=== PATIENT | male | born 1960 | race African-American/Black ===

== ENCOUNTER 2016-02-19 12:07 | Inpatient (IN) | payer OTHER ==
[2016-02-19 12:49] VITALS: BMI 26.6
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
[2016-02-19] MEDS ORDERED: hydrOXYzine PAMOATE 50 MG CAPSULE (FP) PO PRN (13:35)
[2016-02-19] MEDS ORDERED: MENTHOL/PHENOL 1 EACH UD MM PRN (13:35)
[2016-02-19] MEDS ORDERED: guaiFENesin/D-METHORPHAN HB 10 ML UNIT-DOSE CUPS PO PRN (13:35)
[2016-02-19] MEDS ORDERED: LOPERAMIDE HCL 2 MG CAPSULE PO PRN (13:35)
[2016-02-19] MEDS ORDERED: P-EPHED 60MG/TRIPROLIDI 2.5MG TABLET PO PRN (13:35)
[2016-02-19] MEDS ORDERED: MAG HYDROX/AL HYDROX/SIMETH 30 ML UNIT-DOSE CUP PO PRN (13:35)
[2016-02-19] MEDS ORDERED: IBUPROFEN 400 MG TABLET (FP) PO PRN (13:35)
[2016-02-19] MEDS ORDERED: MAGNESIUM CITRATE 300 ML BOTTLE PO PRN (13:35)
[2016-02-19] MEDS ORDERED: MAGNESIUM HYDROX 2400MG/30ML ORAL SUSPENSION 30 ML CUP PO PRN (13:35)
[2016-02-19] MEDS ORDERED: ALBUTEROL SO4 6.7 GM HFA INHALER IH PRN (13:37)
[2016-02-19] MEDS: ACETAMINOPHEN 325 MG TABLET (FP) PO PRN (19:06)
[2016-02-19] MEDS: NICOTINE 21 MG/24 HOURS TOPICAL PATCH TD SCH (20:02)
[2016-02-19 20:07] LABS: MCH 27.8 pg (25.7-33.7); MCHC 31.4 g/dl (32.0-35.9); MEAN CELL VOLUME 88.6 fl (80-96); MEAN PLT VOLUME 7.6 fl (7.5-11.1); PLATELET COUNT 346 K/MM3 (134-434); RDW 15.5 % (11.9-15.9); WHITE BLOOD COUNT 5.6 K/mm3 (4.0-10.0)
[2016-02-19 20:23] LABS: URINE APPEARANCE SLCLOUDY; URINE BILIRUBIN NEGATIVE (NEGATIVE); URINE BLOOD NEGATIVE (NEGATIVE); URINE COLOR YELLOW; URINE GLUCOSE (UA) NEGATIVE (NEGATIVE); URINE KETONE NEGATIVE (NEGATIVE); URINE LEUK ESTERASE NEGATIVE (NEGATIVE); URINE NITRITE NEGATIVE (NEGATIVE); URINE PROTEIN NEGATIVE (NEGATIVE); URINE UROBILINOGEN NEGATIVE E.U./dl (0.2-1.0)
[2016-02-19 20:30] LABS: ALBUMIN 4.3 g/dl (3.4-5.0); ANION GAP 9 (8-16); CALCIUM 9.4 mg/dL (8.5-10.1); CO2 27 mmol/L (21-32); GLUCOSE,RANDOM 109 mg/dL (74-106)
[2016-02-19 20:35] LABS: ALK PHOS 85 U/L (45-117); BILIRUBIN,TOTAL 0.5 mg/dL (0.2-1.0); SGOT/AST 14 U/L (15-37); SGPT/ALT 41 U/L (12-78)
[2016-02-19] MEDS: LATANOPROST 0.005% OPHTH SOLN 2.5ML BOTTLE OU SCH (21:50)
[2016-02-19] MEDS: THIAMINE HCL 100 MG TABLET (FP) PO SCH (21:51)
[2016-02-19] MEDS: diphenhydrAMINE HCL 50 MG CAPSULE PO PRN ×2 (21:51→23:29)
[2016-02-19] MEDS: NAPROXEN 500 MG TABLET (FP) PO SCH (21:51)
[2016-02-19] MEDS: BUDESONIDE/FORMETEROL FUMARATE 80/4.5 mcg INHALER IH SCH (21:52)
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
[2016-02-20] MEDS: NICOTINE 21 MG/24 HOURS TOPICAL PATCH TD SCH (10:39)
[2016-02-20] MEDS: NAPROXEN 500 MG TABLET (FP) PO SCH ×2 (10:39→21:46)
[2016-02-20] MEDS: PRENATAL VITAMINS W/ FOLIC ACID TABLET (FP) PO SCH (10:40)
[2016-02-20] MEDS: BUDESONIDE/FORMETEROL FUMARATE 80/4.5 mcg INHALER IH SCH ×2 (10:40→21:46)
[2016-02-20] MEDS ORDERED: BISMUTH SUBSALICYLATE 262 MG/15 ML BTL PO PRN (13:41)
[2016-02-20] MEDS: QUEtiapine FUMARATE 100 MG TABLET (FP) PO SCH (21:45)
[2016-02-20] MEDS: LATANOPROST 0.005% OPHTH SOLN 2.5ML BOTTLE OU SCH (21:46)
[2016-02-20] MEDS: THIAMINE HCL 100 MG TABLET (FP) PO SCH (21:46)
[2016-02-20] MEDS ORDERED: QUEtiapine FUMARATE 100 MG TABLET (FP) PO SCH (22:00)
[2016-02-21] MEDS: PRENATAL VITAMINS W/ FOLIC ACID TABLET (FP) PO SCH (10:26)
[2016-02-21] MEDS: BUDESONIDE/FORMETEROL FUMARATE 80/4.5 mcg INHALER IH SCH ×2 (10:26→22:09)
[2016-02-21] MEDS: NAPROXEN 500 MG TABLET (FP) PO SCH ×2 (10:26→22:08)
[2016-02-21] MEDS: NICOTINE 21 MG/24 HOURS TOPICAL PATCH TD SCH (10:26)
[2016-02-21] MEDS: SERTRALINE HCL 50 MG TABLET (FP) PO SCH (10:27)
[2016-02-21] MEDS: QUEtiapine FUMARATE 100 MG TABLET (FP) PO SCH (22:08)
[2016-02-21] MEDS: THIAMINE HCL 100 MG TABLET (FP) PO SCH (22:08)
[2016-02-21] MEDS: LATANOPROST 0.005% OPHTH SOLN 2.5ML BOTTLE OU SCH (22:09)
[2016-02-22] MEDS: NAPROXEN 500 MG TABLET (FP) PO SCH ×2 (10:33→21:27)
[2016-02-22] MEDS: SERTRALINE HCL 50 MG TABLET (FP) PO SCH (10:33)
[2016-02-22] MEDS: NICOTINE 21 MG/24 HOURS TOPICAL PATCH TD SCH (10:33)
[2016-02-22] MEDS: PRENATAL VITAMINS W/ FOLIC ACID TABLET (FP) PO SCH (10:33)
[2016-02-22] MEDS: BUDESONIDE/FORMETEROL FUMARATE 80/4.5 mcg INHALER IH SCH ×2 (10:33→21:28)
[2016-02-22] MEDS: THIAMINE HCL 100 MG TABLET (FP) PO SCH (21:27)
[2016-02-22] MEDS: QUEtiapine FUMARATE 100 MG TABLET (FP) PO SCH (21:27)
[2016-02-22] MEDS: LATANOPROST 0.005% OPHTH SOLN 2.5ML BOTTLE OU SCH (21:28)
[2016-02-23] MEDS: NICOTINE 21 MG/24 HOURS TOPICAL PATCH TD SCH (10:28)
[2016-02-23] MEDS: NAPROXEN 500 MG TABLET (FP) PO SCH ×2 (10:28→22:06)
[2016-02-23] MEDS: PRENATAL VITAMINS W/ FOLIC ACID TABLET (FP) PO SCH (10:29)
[2016-02-23] MEDS: BUDESONIDE/FORMETEROL FUMARATE 80/4.5 mcg INHALER IH SCH ×2 (10:29→22:06)
[2016-02-23] MEDS: SERTRALINE HCL 50 MG TABLET (FP) PO SCH (10:33)
[2016-02-23] MEDS: LATANOPROST 0.005% OPHTH SOLN 2.5ML BOTTLE OU SCH (22:06)
[2016-02-23] MEDS: QUEtiapine FUMARATE 100 MG TABLET (FP) PO SCH (22:06)
[2016-02-23] MEDS: THIAMINE HCL 100 MG TABLET (FP) PO SCH (22:06)
[2016-02-24] MEDS: NICOTINE 21 MG/24 HOURS TOPICAL PATCH TD SCH (10:22)
[2016-02-24] MEDS: PRENATAL VITAMINS W/ FOLIC ACID TABLET (FP) PO SCH (10:22)
[2016-02-24] MEDS: NAPROXEN 500 MG TABLET (FP) PO SCH ×2 (10:22→21:06)
[2016-02-24] MEDS: BUDESONIDE/FORMETEROL FUMARATE 80/4.5 mcg INHALER IH SCH ×2 (10:23→21:07)
[2016-02-24] MEDS: SERTRALINE HCL 50 MG TABLET (FP) PO SCH (10:23)
[2016-02-24] MEDS: QUEtiapine FUMARATE 100 MG TABLET (FP) PO SCH (21:06)
[2016-02-24] MEDS: THIAMINE HCL 100 MG TABLET (FP) PO SCH (21:06)
[2016-02-24] MEDS: LATANOPROST 0.005% OPHTH SOLN 2.5ML BOTTLE OU SCH (21:06)
[2016-02-25] MEDS: NICOTINE 21 MG/24 HOURS TOPICAL PATCH TD SCH (10:39)
[2016-02-25] MEDS: BUDESONIDE/FORMETEROL FUMARATE 80/4.5 mcg INHALER IH SCH ×2 (10:39→21:04)
[2016-02-25] MEDS: SERTRALINE HCL 50 MG TABLET (FP) PO SCH (10:39)
[2016-02-25] MEDS: NAPROXEN 500 MG TABLET (FP) PO SCH ×2 (10:39→21:04)
[2016-02-25] MEDS: PRENATAL VITAMINS W/ FOLIC ACID TABLET (FP) PO SCH (10:39)
[2016-02-25] MEDS: LATANOPROST 0.005% OPHTH SOLN 2.5ML BOTTLE OU SCH (21:03)
[2016-02-25] MEDS: THIAMINE HCL 100 MG TABLET (FP) PO SCH (21:04)
[2016-02-25] MEDS: QUEtiapine FUMARATE 100 MG TABLET (FP) PO SCH (21:04)
[2016-02-26] MEDS: BUDESONIDE/FORMETEROL FUMARATE 80/4.5 mcg INHALER IH SCH ×2 (10:17→21:07)
[2016-02-26] MEDS: NICOTINE 21 MG/24 HOURS TOPICAL PATCH TD SCH (10:17)
[2016-02-26] MEDS: PRENATAL VITAMINS W/ FOLIC ACID TABLET (FP) PO SCH (10:17)
[2016-02-26] MEDS: SERTRALINE HCL 50 MG TABLET (FP) PO SCH (10:17)
[2016-02-26] MEDS: NAPROXEN 500 MG TABLET (FP) PO SCH ×2 (10:17→21:07)
[2016-02-26 10:18] LABS: BASOPHIL 1.1 % (0-2.0); EOSINOPHIL 2.9 % (0-4.5); MCH 28.4 pg (25.7-33.7); MCHC 32.1 g/dl (32.0-35.9); MEAN CELL VOLUME 88.3 fl (80-96); MEAN PLT VOLUME 7.2 fl (7.5-11.1); NEUTROPHILS 30.5 % (42.8-82.8); PLATELET COUNT 289 K/MM3 (134-434); RDW 15.2 % (11.9-15.9); WHITE BLOOD COUNT 5.2 K/mm3 (4.0-10.0)
[2016-02-26] MEDS: THIAMINE HCL 100 MG TABLET (FP) PO SCH (21:06)
[2016-02-26] MEDS: QUEtiapine FUMARATE 100 MG TABLET (FP) PO SCH (21:06)
[2016-02-27] MEDS: BUDESONIDE/FORMETEROL FUMARATE 80/4.5 mcg INHALER IH SCH ×2 (10:04→21:05)
[2016-02-27] MEDS: SERTRALINE HCL 50 MG TABLET (FP) PO SCH (10:04)
[2016-02-27] MEDS: NICOTINE 21 MG/24 HOURS TOPICAL PATCH TD SCH (10:04)
[2016-02-27] MEDS: PRENATAL VITAMINS W/ FOLIC ACID TABLET (FP) PO SCH (10:04)
[2016-02-27] MEDS: NAPROXEN 500 MG TABLET (FP) PO SCH ×2 (10:04→21:05)
[2016-02-27] MEDS: ACETAMINOPHEN 325 MG TABLET (FP) PO PRN (11:53)
[2016-02-27] MEDS: LATANOPROST 0.005% OPHTH SOLN 2.5ML BOTTLE OU SCH ×2 (17:29→21:05)
[2016-02-27] MEDS: THIAMINE HCL 100 MG TABLET (FP) PO SCH (21:04)
[2016-02-27] MEDS: QUEtiapine FUMARATE 100 MG TABLET (FP) PO SCH (21:05)
[2016-02-28] MEDS: SERTRALINE HCL 50 MG TABLET (FP) PO SCH (10:20)
[2016-02-28] MEDS: PRENATAL VITAMINS W/ FOLIC ACID TABLET (FP) PO SCH (10:20)
[2016-02-28] MEDS: NAPROXEN 500 MG TABLET (FP) PO SCH ×2 (10:20→21:11)
[2016-02-28] MEDS: BUDESONIDE/FORMETEROL FUMARATE 80/4.5 mcg INHALER IH SCH ×2 (10:21→21:45)
[2016-02-28] MEDS: NICOTINE 21 MG/24 HOURS TOPICAL PATCH TD SCH (10:21)
[2016-02-28] MEDS: LATANOPROST 0.005% OPHTH SOLN 2.5ML BOTTLE OU SCH (21:11)
[2016-02-28] MEDS: QUEtiapine FUMARATE 100 MG TABLET (FP) PO SCH (21:11)
[2016-02-28] MEDS: THIAMINE HCL 100 MG TABLET (FP) PO SCH (21:45)
[2016-02-29] MEDS: PRENATAL VITAMINS W/ FOLIC ACID TABLET (FP) PO SCH (10:30)
[2016-02-29] MEDS: NAPROXEN 500 MG TABLET (FP) PO SCH ×2 (10:31→21:40)
[2016-02-29] MEDS: BUDESONIDE/FORMETEROL FUMARATE 80/4.5 mcg INHALER IH SCH ×2 (10:31→21:39)
[2016-02-29] MEDS: SERTRALINE HCL 50 MG TABLET (FP) PO SCH (10:31)
[2016-02-29] MEDS: NICOTINE 21 MG/24 HOURS TOPICAL PATCH TD SCH (10:32)
[2016-02-29] MEDS: QUEtiapine FUMARATE 100 MG TABLET (FP) PO SCH (21:40)
[2016-02-29] MEDS: THIAMINE HCL 100 MG TABLET (FP) PO SCH (21:40)
[2016-02-29] MEDS: LATANOPROST 0.005% OPHTH SOLN 2.5ML BOTTLE OU SCH (21:41)
[2016-03-01] MEDS: BUDESONIDE/FORMETEROL FUMARATE 80/4.5 mcg INHALER IH SCH ×2 (10:21→22:42)
[2016-03-01] MEDS: NAPROXEN 500 MG TABLET (FP) PO SCH ×2 (10:21→21:43)
[2016-03-01] MEDS: SERTRALINE HCL 50 MG TABLET (FP) PO SCH (10:21)
[2016-03-01] MEDS: PRENATAL VITAMINS W/ FOLIC ACID TABLET (FP) PO SCH (10:21)
[2016-03-01] MEDS: NICOTINE 21 MG/24 HOURS TOPICAL PATCH TD SCH (10:21)
[2016-03-01] MEDS: LATANOPROST 0.005% OPHTH SOLN 2.5ML BOTTLE OU SCH (21:42)
[2016-03-01] MEDS: THIAMINE HCL 100 MG TABLET (FP) PO SCH (21:43)
[2016-03-01] MEDS: QUEtiapine FUMARATE 100 MG TABLET (FP) PO SCH (21:43)
[2016-03-02] MEDS: SERTRALINE HCL 50 MG TABLET (FP) PO SCH (10:01)
[2016-03-02] MEDS: NICOTINE 21 MG/24 HOURS TOPICAL PATCH TD SCH (10:01)
[2016-03-02] MEDS: NAPROXEN 500 MG TABLET (FP) PO SCH ×2 (10:01→21:19)
[2016-03-02] MEDS: BUDESONIDE/FORMETEROL FUMARATE 80/4.5 mcg INHALER IH SCH ×2 (10:01→21:19)
[2016-03-02] MEDS: PRENATAL VITAMINS W/ FOLIC ACID TABLET (FP) PO SCH (10:01)
[2016-03-02] MEDS: THIAMINE HCL 100 MG TABLET (FP) PO SCH (21:19)
[2016-03-02] MEDS: QUEtiapine FUMARATE 100 MG TABLET (FP) PO SCH (21:19)
[2016-03-02] MEDS: LATANOPROST 0.005% OPHTH SOLN 2.5ML BOTTLE OU SCH (21:48)
[2016-03-03] MEDS: SERTRALINE HCL 50 MG TABLET (FP) PO SCH (09:50)
[2016-03-03] MEDS: PRENATAL VITAMINS W/ FOLIC ACID TABLET (FP) PO SCH (09:50)
[2016-03-03] MEDS: BUDESONIDE/FORMETEROL FUMARATE 80/4.5 mcg INHALER IH SCH ×2 (09:51→23:13)
[2016-03-03] MEDS: NAPROXEN 500 MG TABLET (FP) PO SCH ×2 (09:51→21:20)
[2016-03-03] MEDS: NICOTINE 21 MG/24 HOURS TOPICAL PATCH TD SCH (09:51)
[2016-03-03] MEDS ORDERED: LIDOCAINE VISCOUS 2% ORAL/TOP 20 ML UNIT-DOSE CUP MM PRN (13:18)
--- NOTE | 2016-03-03 13:23 | PN ---
S Progress Note (SOAP) Subjective: swollen , painful gums Objective: 03/03/16 13:21 Vital Signs Temperature 97.5 F L 03/03/16 06:49 Pulse Rate 86 03/03/16 06:49 Respiratory Rate 16 03/03/16 06:49 Blood Pressure 106/68 03/03/16 06:49 O2 Sat by Pulse Oximetry (%) gum rt upper quad. redness, tenderness Assessment: 03/03/16 13:22 gingivitis Plan: amoxicillin 500mg tid viscous lidocaine fluids naproxsen 500mg bid
[2016-03-03] MEDS: AMOXICILLIN 500 MG CAPSULE (FP) PO SCH ×2 (14:01→21:20)
[2016-03-03] MEDS: QUEtiapine FUMARATE 100 MG TABLET (FP) PO SCH (21:20)
[2016-03-03] MEDS: THIAMINE HCL 100 MG TABLET (FP) PO SCH (21:20)
[2016-03-03] MEDS: LATANOPROST 0.005% OPHTH SOLN 2.5ML BOTTLE OU SCH (21:21)
[2016-03-04] MEDS: AMOXICILLIN 500 MG CAPSULE (FP) PO SCH ×3 (06:50→21:01)
[2016-03-04] MEDS: NAPROXEN 500 MG TABLET (FP) PO SCH ×2 (09:53→21:01)
[2016-03-04] MEDS: PRENATAL VITAMINS W/ FOLIC ACID TABLET (FP) PO SCH (09:53)
[2016-03-04] MEDS: SERTRALINE HCL 50 MG TABLET (FP) PO SCH (09:53)
[2016-03-04] MEDS: NICOTINE 21 MG/24 HOURS TOPICAL PATCH TD SCH (09:53)
[2016-03-04] MEDS: BUDESONIDE/FORMETEROL FUMARATE 80/4.5 mcg INHALER IH SCH ×2 (09:54→23:12)
[2016-03-04] MEDS: LATANOPROST 0.005% OPHTH SOLN 2.5ML BOTTLE OU SCH (21:00)
[2016-03-04] MEDS: QUEtiapine FUMARATE 100 MG TABLET (FP) PO SCH (21:01)
[2016-03-04] MEDS: THIAMINE HCL 100 MG TABLET (FP) PO SCH (21:01)
[2016-03-05] MEDS: AMOXICILLIN 500 MG CAPSULE (FP) PO SCH ×3 (06:23→21:07)
[2016-03-05] MEDS: NAPROXEN 500 MG TABLET (FP) PO SCH ×2 (10:16→21:07)
[2016-03-05] MEDS: SERTRALINE HCL 50 MG TABLET (FP) PO SCH (10:16)
[2016-03-05] MEDS: NICOTINE 21 MG/24 HOURS TOPICAL PATCH TD SCH (10:16)
[2016-03-05] MEDS: BUDESONIDE/FORMETEROL FUMARATE 80/4.5 mcg INHALER IH SCH ×2 (10:16→21:08)
[2016-03-05] MEDS: PRENATAL VITAMINS W/ FOLIC ACID TABLET (FP) PO SCH (10:16)
[2016-03-05] MEDS: LATANOPROST 0.005% OPHTH SOLN 2.5ML BOTTLE OU SCH (21:06)
[2016-03-05] MEDS: QUEtiapine FUMARATE 100 MG TABLET (FP) PO SCH (21:07)
[2016-03-05] MEDS: THIAMINE HCL 100 MG TABLET (FP) PO SCH (21:07)
[2016-03-06] MEDS: AMOXICILLIN 500 MG CAPSULE (FP) PO SCH ×3 (06:42→21:42)
[2016-03-06] MEDS: PRENATAL VITAMINS W/ FOLIC ACID TABLET (FP) PO SCH (10:27)
[2016-03-06] MEDS: SERTRALINE HCL 50 MG TABLET (FP) PO SCH (10:27)
[2016-03-06] MEDS: NAPROXEN 500 MG TABLET (FP) PO SCH ×2 (10:27→21:42)
[2016-03-06] MEDS: BUDESONIDE/FORMETEROL FUMARATE 80/4.5 mcg INHALER IH SCH ×2 (10:28→21:42)
[2016-03-06] MEDS: NICOTINE 21 MG/24 HOURS TOPICAL PATCH TD SCH (10:28)
[2016-03-06] MEDS: THIAMINE HCL 100 MG TABLET (FP) PO SCH (21:41)
[2016-03-06] MEDS: LATANOPROST 0.005% OPHTH SOLN 2.5ML BOTTLE OU SCH (21:42)
[2016-03-06] MEDS: QUEtiapine FUMARATE 100 MG TABLET (FP) PO SCH (21:42)
[2016-03-07] MEDS: AMOXICILLIN 500 MG CAPSULE (FP) PO SCH ×3 (06:28→21:11)
[2016-03-07] MEDS: NICOTINE 21 MG/24 HOURS TOPICAL PATCH TD SCH (10:44)
[2016-03-07] MEDS: SERTRALINE HCL 50 MG TABLET (FP) PO SCH (10:44)
[2016-03-07] MEDS: PRENATAL VITAMINS W/ FOLIC ACID TABLET (FP) PO SCH (10:44)
[2016-03-07] MEDS: BUDESONIDE/FORMETEROL FUMARATE 80/4.5 mcg INHALER IH SCH ×2 (10:44→21:12)
[2016-03-07] MEDS: NAPROXEN 500 MG TABLET (FP) PO SCH ×2 (10:44→21:11)
[2016-03-07] MEDS: THIAMINE HCL 100 MG TABLET (FP) PO SCH (21:11)
[2016-03-07] MEDS: QUEtiapine FUMARATE 100 MG TABLET (FP) PO SCH (21:11)
[2016-03-07] MEDS: LATANOPROST 0.005% OPHTH SOLN 2.5ML BOTTLE OU SCH (21:12)
[2016-03-08] MEDS: AMOXICILLIN 500 MG CAPSULE (FP) PO SCH ×3 (06:28→21:22)
[2016-03-08] MEDS: PRENATAL VITAMINS W/ FOLIC ACID TABLET (FP) PO SCH (10:27)
[2016-03-08] MEDS: NICOTINE 21 MG/24 HOURS TOPICAL PATCH TD SCH (10:27)
[2016-03-08] MEDS: NAPROXEN 500 MG TABLET (FP) PO SCH ×2 (10:27→21:22)
[2016-03-08] MEDS: BUDESONIDE/FORMETEROL FUMARATE 80/4.5 mcg INHALER IH SCH ×2 (10:27→21:22)
[2016-03-08] MEDS: SERTRALINE HCL 50 MG TABLET (FP) PO SCH (10:27)
[2016-03-08] MEDS: THIAMINE HCL 100 MG TABLET (FP) PO SCH (21:22)
[2016-03-08] MEDS: QUEtiapine FUMARATE 100 MG TABLET (FP) PO SCH (21:22)
[2016-03-08] MEDS: LATANOPROST 0.005% OPHTH SOLN 2.5ML BOTTLE OU SCH (21:24)
[2016-03-09] MEDS: AMOXICILLIN 500 MG CAPSULE (FP) PO SCH ×3 (06:49→21:39)
[2016-03-09] MEDS: NICOTINE 21 MG/24 HOURS TOPICAL PATCH TD SCH (10:11)
[2016-03-09] MEDS: BUDESONIDE/FORMETEROL FUMARATE 80/4.5 mcg INHALER IH SCH ×2 (10:11→23:01)
[2016-03-09] MEDS: SERTRALINE HCL 50 MG TABLET (FP) PO SCH (10:11)
[2016-03-09] MEDS: PRENATAL VITAMINS W/ FOLIC ACID TABLET (FP) PO SCH (10:11)
[2016-03-09] MEDS: NAPROXEN 500 MG TABLET (FP) PO SCH ×2 (10:11→21:39)
[2016-03-09] MEDS: QUEtiapine FUMARATE 100 MG TABLET (FP) PO SCH (21:38)
[2016-03-09] MEDS: LATANOPROST 0.005% OPHTH SOLN 2.5ML BOTTLE OU SCH (21:38)
[2016-03-09] MEDS: THIAMINE HCL 100 MG TABLET (FP) PO SCH (21:38)
[2016-03-10] MEDS: AMOXICILLIN 500 MG CAPSULE (FP) PO SCH ×2 (06:30→14:22)
[2016-03-10] MEDS: NAPROXEN 500 MG TABLET (FP) PO SCH ×2 (09:13→21:34)
[2016-03-10] MEDS: PRENATAL VITAMINS W/ FOLIC ACID TABLET (FP) PO SCH (09:13)
[2016-03-10] MEDS: NICOTINE 21 MG/24 HOURS TOPICAL PATCH TD SCH (09:14)
[2016-03-10] MEDS: SERTRALINE HCL 50 MG TABLET (FP) PO SCH (09:14)
[2016-03-10] MEDS: BUDESONIDE/FORMETEROL FUMARATE 80/4.5 mcg INHALER IH SCH ×2 (09:14→21:35)
[2016-03-10] MEDS: QUEtiapine FUMARATE 100 MG TABLET (FP) PO SCH (21:34)
[2016-03-10] MEDS: THIAMINE HCL 100 MG TABLET (FP) PO SCH (21:34)
[2016-03-10] MEDS: LATANOPROST 0.005% OPHTH SOLN 2.5ML BOTTLE OU SCH (21:34)
[2016-03-11] MEDS: PRENATAL VITAMINS W/ FOLIC ACID TABLET (FP) PO SCH (10:33)
[2016-03-11] MEDS: SERTRALINE HCL 50 MG TABLET (FP) PO SCH (10:33)
[2016-03-11] MEDS: NAPROXEN 500 MG TABLET (FP) PO SCH ×2 (10:33→21:46)
[2016-03-11] MEDS: BUDESONIDE/FORMETEROL FUMARATE 80/4.5 mcg INHALER IH SCH ×2 (10:34→21:46)
[2016-03-11] MEDS: NICOTINE 21 MG/24 HOURS TOPICAL PATCH TD SCH (10:34)
[2016-03-11] MEDS: LATANOPROST 0.005% OPHTH SOLN 2.5ML BOTTLE OU SCH (21:46)
[2016-03-11] MEDS: THIAMINE HCL 100 MG TABLET (FP) PO SCH (21:46)
[2016-03-11] MEDS: QUEtiapine FUMARATE 100 MG TABLET (FP) PO SCH (21:46)
[2016-03-12] MEDS: NAPROXEN 500 MG TABLET (FP) PO SCH ×2 (10:18→21:42)
[2016-03-12] MEDS: PRENATAL VITAMINS W/ FOLIC ACID TABLET (FP) PO SCH (10:18)
[2016-03-12] MEDS: NICOTINE 21 MG/24 HOURS TOPICAL PATCH TD SCH (10:19)
[2016-03-12] MEDS: BUDESONIDE/FORMETEROL FUMARATE 80/4.5 mcg INHALER IH SCH ×2 (10:19→21:43)
[2016-03-12] MEDS: SERTRALINE HCL 50 MG TABLET (FP) PO SCH (10:27)
[2016-03-12] MEDS: LATANOPROST 0.005% OPHTH SOLN 2.5ML BOTTLE OU SCH (21:42)
[2016-03-12] MEDS: THIAMINE HCL 100 MG TABLET (FP) PO SCH (21:42)
[2016-03-12] MEDS: QUEtiapine FUMARATE 100 MG TABLET (FP) PO SCH (21:42)
[2016-03-13] MEDS: NICOTINE 21 MG/24 HOURS TOPICAL PATCH TD SCH (10:40)
[2016-03-13] MEDS: BUDESONIDE/FORMETEROL FUMARATE 80/4.5 mcg INHALER IH SCH ×2 (10:40→21:44)
[2016-03-13] MEDS: NAPROXEN 500 MG TABLET (FP) PO SCH ×2 (10:40→21:44)
[2016-03-13] MEDS: PRENATAL VITAMINS W/ FOLIC ACID TABLET (FP) PO SCH (10:40)
[2016-03-13] MEDS: SERTRALINE HCL 50 MG TABLET (FP) PO SCH (10:40)
[2016-03-13] MEDS: QUEtiapine FUMARATE 100 MG TABLET (FP) PO SCH (21:44)
[2016-03-13] MEDS: LATANOPROST 0.005% OPHTH SOLN 2.5ML BOTTLE OU SCH (21:44)
[2016-03-13] MEDS: THIAMINE HCL 100 MG TABLET (FP) PO SCH (21:44)
[2016-03-14] MEDS: PRENATAL VITAMINS W/ FOLIC ACID TABLET (FP) PO SCH (10:44)
[2016-03-14] MEDS: SERTRALINE HCL 50 MG TABLET (FP) PO SCH (10:44)
[2016-03-14] MEDS: NAPROXEN 500 MG TABLET (FP) PO SCH ×2 (10:44→21:42)
[2016-03-14] MEDS: BUDESONIDE/FORMETEROL FUMARATE 80/4.5 mcg INHALER IH SCH ×2 (10:45→21:42)
[2016-03-14] MEDS: NICOTINE 21 MG/24 HOURS TOPICAL PATCH TD SCH (10:45)
[2016-03-14] MEDS: THIAMINE HCL 100 MG TABLET (FP) PO SCH (21:41)
[2016-03-14] MEDS: QUEtiapine FUMARATE 100 MG TABLET (FP) PO SCH (21:41)
[2016-03-14] MEDS: LATANOPROST 0.005% OPHTH SOLN 2.5ML BOTTLE OU SCH (21:42)
[2016-03-15] MEDS: NAPROXEN 500 MG TABLET (FP) PO SCH ×2 (10:34→21:41)
[2016-03-15] MEDS: BUDESONIDE/FORMETEROL FUMARATE 80/4.5 mcg INHALER IH SCH ×2 (10:34→21:41)
[2016-03-15] MEDS: NICOTINE 21 MG/24 HOURS TOPICAL PATCH TD SCH (10:34)
[2016-03-15] MEDS: SERTRALINE HCL 50 MG TABLET (FP) PO SCH (10:34)
[2016-03-15] MEDS: PRENATAL VITAMINS W/ FOLIC ACID TABLET (FP) PO SCH (10:34)
[2016-03-15] MEDS: LATANOPROST 0.005% OPHTH SOLN 2.5ML BOTTLE OU SCH (21:40)
[2016-03-15] MEDS: THIAMINE HCL 100 MG TABLET (FP) PO SCH (21:41)
[2016-03-15] MEDS: QUEtiapine FUMARATE 100 MG TABLET (FP) PO SCH (21:41)
[2016-03-16] MEDS: PRENATAL VITAMINS W/ FOLIC ACID TABLET (FP) PO SCH (10:33)
[2016-03-16] MEDS: SERTRALINE HCL 50 MG TABLET (FP) PO SCH (10:33)
[2016-03-16] MEDS: NAPROXEN 500 MG TABLET (FP) PO SCH ×2 (10:33→21:26)
[2016-03-16] MEDS: NICOTINE 21 MG/24 HOURS TOPICAL PATCH TD SCH (10:34)
[2016-03-16] MEDS: BUDESONIDE/FORMETEROL FUMARATE 80/4.5 mcg INHALER IH SCH ×2 (10:34→21:26)
[2016-03-16] MEDS: QUEtiapine FUMARATE 100 MG TABLET (FP) PO SCH (21:26)
[2016-03-16] MEDS: THIAMINE HCL 100 MG TABLET (FP) PO SCH (21:26)
[2016-03-16] MEDS: LATANOPROST 0.005% OPHTH SOLN 2.5ML BOTTLE OU SCH (21:27)
--- NOTE | 2016-03-17 07:59 | PN ---
Psychiatric Progress Note Vital Signs: Vital Signs Period Temp Pulse Resp BP Sys/Hernandez Pulse Ox Last 24 Hr 98 F 66 18-18 129/80 Date of Session: 03/17/16 Chief Complaint:: Psychiatrist Discharge Note HPI: Patient addressing Alcohol and Opoid Dependence comorbid with Nicotine Dependence and Bipolar Disorder ROS: Asthma, Glaucoma, Hepatitis C were medically managed Current Medications: Active Medications Generic Name Dose Route Start Last Admin Trade Name Freq PRN Reason Stop Dose Admin Acetaminophen 650 mg 02/19/16 13:35 02/27/16 11:53 Tylenol - PO 650 mg Q4H PRN Administration PAIN Al Hydroxide/Mg Hydroxide 30 ml 02/19/16 13:35 Mylanta Oral Suspension - PO Q6H PRN DYSPEPSIA Albuterol Sulfate 2 puff 02/19/16 13:37 Ventolin Hfa Inhaler - IH Q4H PRN ASTHMA Bismuth Subsalicylate 30 ml 02/20/16 13:41 Pepto-Bismol Liquid - PO BID PRN DIARRHEA Budesonide/Formoterol Fumarate 2 puff 02/19/16 22:00 03/16/16 21:26 Symbicort 80/4.5mcg - IH 2 puff BID APOLINAR Administration Diphenhydramine HCl 50 mg 02/19/16 13:35 02/19/16 23:29 Benadryl - PO 50 mg HSMR1 PRN Administration INSOMNIA Eucalyptus/Menthol/Phenol/Sorbitol 1 each 02/19/16 13:35 Cepastat Lozenge - MM Q4H PRN SORE THROAT Guaifenesin 10 ml 02/19/16 13:35 Robitussin Dm - PO Q6H PRN COUGH Hydroxyzine Pamoate 50 mg 02/19/16 13:35 Vistaril - PO Q4H PRN AGITATION Latanoprost 1 drop 02/19/16 22:00 03/16/16 21:27 Xalatan 0.005% Eye Drops - OU 1 drop HS APOLINAR Administration Lidocaine HCl 20 ml 03/03/16 13:18 Xylocaine 2% Viscous Oral - MM Q6HPO PRN ORAL PAIN/MOUTH SORES Loperamide HCl 4 mg 02/19/16 13:35 Imodium - PO Q6H PRN DIARRHEA Magnesium Citrate 300 ml 02/19/16 13:35 Citroma - PO Q48H PRN CONSTIPATION Magnesium Hydroxide 30 ml 02/19/16 13:35 Milk Of Magnesia - PO DAILY PRN CONSTIPATION Naproxen 500 mg 02/19/16 22:00 03/16/16 21:26 Naprosyn - PO 500 mg BID APOLINAR Administration Nicotine 21 mg 02/19/16 14:36 03/16/16 10:34 Nicoderm Patch - TD Not Given DAILY APOLINAR Multivit/Folic Acid/Iron 1 tab 02/20/16 10:00 03/16/16 10:33 Vitamins (Sjr) - PO 1 tab DAILY APOLINAR Administration Pseudoephedrine/Triprolidine 1 combo 02/19/16 13:35 Actifed - PO TID PRN NASAL CONGESTION Quetiapine Fumarate 100 mg 02/20/16 22:00 03/16/16 21:26 Seroquel - PO 100 mg HS APOLINAR Administration Sertraline HCl 50 mg 02/21/16 10:00 03/16/16 10:33 Zoloft - PO 50 mg DAILY APOLINAR Administration Thiamine HCl 100 mg 02/19/16 22:00 03/16/16 21:26 Vitamin B1 - PO 100 mg HS APOLINAR Administration Current Side Effect: No Lab tests ordered: Yes Lab tests reviewed: Yes Provider note:: Patient will complete this program on 03/18/16. He has met his treatment goals and will continue to address his issues in outpatient treatment at [facility] at [address] [place] [address].Told sports writer that from his participation in this program, he has learned about his triggers and the need to establish a network in order to maintain abstinence.He responded well to Seroquel 100 mg po HS. Script for 30 days supply of that medication will be electronically transmitted to [facility] at [address] [place] [address]. He is stable for discharge on 03/18/16 Total face to face time:: 35 Psychiatric Treatment Plan - Problem List (1) Alcohol dependence with uncomplicated withdrawal Current Visit: No (2) Opioid dependence with withdrawal Current Visit: No (3) Nicotine dependence Current Visit: No Qualifiers: Nicotine product type: cigarettes Substance use status: uncomplicated Qualified Code(s): F17.210 - Nicotine dependence, cigarettes, uncomplicated (4) Bipolar disorder Current Visit: No Qualifiers: Current episode severity: mild (5) Asthma Current Visit: No Qualifiers: Asthma severity: mild intermittent Asthma complication type: uncomplicated Qualified Code(s): J45.20 - Mild intermittent asthma, uncomplicated (6) Glaucoma Current Visit: Yes (7) Hepatitis C Current Visit: No Qualifiers: Viral hepatitis chronicity: chronic Initial treatment plan: Patient will be discharged tomorrow and referred to [facility] for outpatient treatment
[2016-03-17] MEDS: SERTRALINE HCL 50 MG TABLET (FP) PO SCH (10:39)
[2016-03-17] MEDS: PRENATAL VITAMINS W/ FOLIC ACID TABLET (FP) PO SCH (10:39)
[2016-03-17] MEDS: NAPROXEN 500 MG TABLET (FP) PO SCH ×2 (10:39→21:32)
[2016-03-17] MEDS: BUDESONIDE/FORMETEROL FUMARATE 80/4.5 mcg INHALER IH SCH ×2 (10:40→21:32)
[2016-03-17] MEDS: NICOTINE 21 MG/24 HOURS TOPICAL PATCH TD SCH (10:40)
[2016-03-17] MEDS: QUEtiapine FUMARATE 100 MG TABLET (FP) PO SCH (21:32)
[2016-03-17] MEDS: LATANOPROST 0.005% OPHTH SOLN 2.5ML BOTTLE OU SCH (21:32)
[2016-03-17] MEDS: THIAMINE HCL 100 MG TABLET (FP) PO SCH (21:32)
[2016-03-18 07:25] VITALS: BP 131/87; PULSE 85; TEMP 97.6
== END 2016-03-18 09:00 | disposition home or self-care (01) | DRG 895 ==
LOC: YASAS 12:07 → Y3W 14:29
PROVIDERS: ADMIT Psychiatry & Neurology Psychiatry; ATTEND Psychiatry & Neurology Psychiatry
PROC: HZ42ZZZ Group Counseling for Substance Abuse Treatment, Cognitive-Behavioral (ICD-10-PCS; principal; 2016-02-19)
DX: F11.20 Opioid dependence, uncomplicated (principal); F10.20 Alcohol dependence, uncomplicated; F17.210 Nicotine dependence, cigarettes, uncomplicated; F31.9 Bipolar disorder, unspecified; J45.909 Unspecified asthma, uncomplicated; H40.9 Unspecified glaucoma; B18.2 Chronic viral hepatitis C; K05.10 Chronic gingivitis, plaque induced
CPT/HCPCS: 36415; 80053; 81003; 85025; 85027; 86593; 86803; 87522; 93005; 93010

== ENCOUNTER 2016-04-15 15:48 | Inpatient (IN) | payer OTHER ==
[2016-04-15 16:35] VITALS: BMI 24.8
--- NOTE | 2016-04-15 18:44 | HP ---
COWS - Scale Resting Pulse: 1= GA 81-100 Sweatin=Flushed/Facial Moisture Restless Observation: 1= Difficult to Sit Still Pupil Size: 1= Pupils >than Normal Bone or Joint Aches: 1= Mild Discomfort Runny Nose/ Eye Tearin= Runny Nose/Eyes GI Upset > 30mins: 3= Vomiting/Diarrhea Tremor Observation: 1= Tremor [place], Not Seen Yawning Observation: 1= 1-2x During Session Anxiety or Irritability: 2=Irritable/Anxious Goose Flesh Skin: 0=Smooth Skin COWS Score: 15 CIWA Score - CIWA Score Nausea/Vomitin Muscle Tremors: 4-Moderate,w/Arms Extend Anxiety: 4-Mod. Anxious/Guarded Agitation: 4-Moderately Restless Paroxysmal Sweats: 2 Orientation: 1-Uncertain about Date Tacttile Disturbances: 0-None Auditory Disturbances: 0-None Visual Disturbances: 0-None Headache: 1-Very Mild CIWA-Ar Total Score: 18 Admission ROS BHS - HPI Chief Complaint: WITHDRAWAL SX Allergies/Adverse Reactions: Allergies Allergy/AdvReac Type Severity Reaction Status Date / Time No Known Allergies Allergy Verified 04/15/16 17:18 History of Present Illness: 55 YEARS OLD MALE WITH LONG HISTORY OF ALCOHOL OPIATE NICOTINE DEPENDENCE HAS ASTHMA AND DEPRESSION Exam Limitations: No Limitations - Ebola screening Have you traveled outside of the country in the last 21 days: No Have you had contact with anyone from an Ebola affected area: No Have you been sick,other than usual withdrawal symptoms: No Do you have a fever: No - Review of Systems Constitutional: Chills, Loss of Appetite, Changes in sleep, Unexplained wgt Loss EENT: reports: Dental Problems (UPPER TEETH MISSING), Other (GLAUCOMA BOTH EYES) Respiratory: reports: No Symptoms reported Cardiac: reports: Palpitations GI: reports: Diarrhea, Nausea, Poor Appetite, Poor Fluid Intake, Vomiting, Indigestion, Abdominal cramping : reports: No Symptoms Reported Musculoskeletal: reports: Back Pain Integumentary: reports: No Symptoms Reported Neuro: reports: Tremors Endocrine: reports: No Symptoms Reported Hematology: reports: No Symptoms Reported Psychiatric: reports: Judgement Intact, Depressed Other Systems: Reviewed and Negative Patient History - Patient Medical History Hx Anemia: No Hx Asthma: Yes Hx Chronic Obstructive Pulmonary Disease (COPD): No Hx Cancer: No Hx Cardiac Disorders: No Hx Congestive Heart Failure: No Hx Hypertension: No Hx Hypercholesterolemia: No Hx Pacemaker: No HX Cerebrovascular Accident: No Hx Seizures: No Hx Dementia: No Hx Diabetes: No Hx Gastrointestinal Disorders: Yes Hx Liver Disease: No Hx Genitourinary Disorders: No Hx Sexually Transmitted Disorders: Yes Hx Renal Disease (ESRD): No Hx Thyroid Disease: No Hx Human Immunodeficiency Virus (HIV): No (last 12/14 negative) Hx Hepatitis C: Yes Hx Depression: No Hx Suicide Attempt: No Hx Bipolar Disorder: Yes (NO MED) Hx Schizophrenia: No - Patient Surgical History Past Surgical History: Yes Hx Neurologic Surgery: No Hx Cataract Extraction: No Hx Cardiac Surgery: No Hx Lung Surgery: No Hx Breast Surgery: No Hx Breast Biopsy: No Hx Abdominal Surgery: No Hx Appendectomy: No Hx Cholecystectomy: No Hx Genitourinary Surgery: No Hx Orthopedic Surgery: Yes (R KNEE SX DUE TO BASEBALL BAT TRUAMA. FX KNEE CAP-, RIGHT) Other Surgical History: INJURED RT. SHOULDER IN 05/2011 WHILE PLAYING BASE BALL Anesthesia Reaction: No - PPD History Previous Implant?: Yes Documented Results: Negative w/proof Implanted On Prior [facility] Admission?: Yes Date: 01/11/16 Results: 0 mm PPD to be Administered?: No - Smoking Cessation Smoking history: Current every day smoker Have you smoked in the past 12 months: Yes Aproximately how many cigarettes per day: 10 Cigars Per Day: 0 Hx Chewing Tobacco Use: No Initiated information on smoking cessation: Yes 'Breaking Loose' booklet given: 04/15/16 - Substance & Tx. History Hx Alcohol Use: Yes Hx Substance Use: Yes Substance Use Type: Alcohol, Heroin, Opiates Hx Substance Use Treatment: Yes - Substances Abused Alcohol Route: Oral Frequency: Daily Amount used: 1 pint Baccardi dark Age of first use: 18 Date of Last Use: 04/15/16 Heroin Route: Inhalation Frequency: Daily Amount used: 10 BAGS Age of first use: 45 Date of Last Use: 04/15/16 Family Disease History - Family Disease History Family Disease History: CA: Father (ALCOHOL,STOMACH,), Mother (ALCOHOL, STOMACH,), Other: Father, Mother Admission Physical Exam BHS - Vital Signs Vital Signs: Vital Signs - 24 hr 04/15/16 16:33 Temperature 96 F L Pulse Rate 96 H Respiratory 20 Rate Blood Pressure 123/80 - Physical General Appearance: Yes: Appropriately Dressed, Mild Distress, Alcohol on Breath , Thin, Tremorous, Irritable, Sweating, Anxious HEENTM: Yes: Hearing grossly Normal, Normal ENT Inspection, Normocephalic, Normal Voice, Other (GLAUCOMA BOTH EYES) Respiratory: Yes: Chest Non-Tender, No Respiratory Distress, No Accessory Muscle Use, Hyperresonant, Inspiration Neck: Yes: Supple, Trachea in good position Breast: Yes: Breasts Symetrical Cardiology: Yes: Regular Rhythm, Regular Rate, S1, S2 Abdominal: Yes: Non Tender, Soft Genitourinary: Yes: Within Normal Limits Back: Yes: Normal Inspection Musculoskeletal: Yes: full range of Motion, Gait Steady, Back pain Extremities: Yes: Normal Range of Motion, Non-Tender, Tremors Neurological: Yes: Alert, Motor Strength 5/5, Normal Response, Depressed Affect Integumentary: Yes: Warm, Clammy Lymphatic: Yes: Within Normal Limits - Diagnostic (1) Alcohol dependence with uncomplicated withdrawal Current Visit: Yes Status: Acute (2) Glaucoma Current Visit: Yes Status: Acute Qualifiers: Glaucoma type: unspecified type Laterality: bilateral Qualified Code(s): H40.9 - Unspecified glaucoma (3) Opioid dependence with withdrawal Current Visit: Yes Status: Acute (4) Asthma Current Visit: Yes Status: Acute Qualifiers: Asthma severity: mild intermittent Asthma complication type: with status asthmaticus Qualified Code(s): J45.22 - Mild intermittent asthma with status asthmaticus (5) Nicotine dependence Current Visit: Yes Status: Acute Qualifiers: Nicotine product type: cigarettes Substance use status: in withdrawal Qualified Code(s): F17.213 - Nicotine dependence, cigarettes, with withdrawal (6) Weight loss Current Visit: Yes Status: Acute (7) GERD (gastroesophageal reflux disease) Current Visit: Yes Status: Acute Qualifiers: Esophagitis presence: without esophagitis Qualified Code(s): K21.9 - Gastro-esophageal reflux disease without esophagitis (8) Hepatitis C antibody test positive Current Visit: Yes Status: Chronic (9) Bipolar II disorder Current Visit: Yes Status: Suspected Comment: SEROQUEL Cleared for Admission S - Detox or Rehab [facility] Level of Care: Medically Managed Detox Regimen/Protocol: Methadone/Librium S Breath Alcohol Content Breath Alcohol Content: 0.064 Urine Drug Screen - Results Drug Screen Negative: No Urine Drug Screen Results: OPI-Opiates, MTD-Methadone, OXY-Oxycodone
[2016-04-15] MEDS ORDERED: P-EPHED 60MG/TRIPROLIDI 2.5MG TABLET PO PRN (18:55)
[2016-04-15] MEDS ORDERED: MAGNESIUM CITRATE 300 ML BOTTLE PO PRN (18:55)
[2016-04-15] MEDS ORDERED: diphenhydrAMINE HCL 50 MG CAPSULE PO PRN (18:55)
[2016-04-15] MEDS ORDERED: ACETAMINOPHEN 325 MG TABLET (FP) PO PRN (18:55)
[2016-04-15] MEDS ORDERED: LOPERAMIDE HCL 2 MG CAPSULE PO PRN (18:55)
[2016-04-15] MEDS ORDERED: MAGNESIUM HYDROX 2400MG/30ML ORAL SUSPENSION 30 ML CUP PO PRN (18:55)
[2016-04-15] MEDS ORDERED: MAG HYDROX/AL HYDROX/SIMETH 30 ML UNIT-DOSE CUP PO PRN (18:55)
[2016-04-15] MEDS ORDERED: guaiFENesin/D-METHORPHAN HB 10 ML UNIT-DOSE CUPS PO PRN (18:55)
[2016-04-15] MEDS ORDERED: METHADONE HCL 10 MG TABLET (FOR DETOX USE ONLY) PO ONE ×2 (18:55→23:00)
[2016-04-15] MEDS ORDERED: chlordiazePOXIDE HCL 25 MG CAPSULE PO PRN (18:55)
[2016-04-15] MEDS ORDERED: MENTHOL/PHENOL 1 EACH UD MM PRN (18:55)
[2016-04-15] MEDS ORDERED: ALBUTEROL SO4 6.7 GM HFA INHALER IH PRN (18:58)
[2016-04-15] MEDS: RANITIDINE HCL 150 MG TABLET (FP) PO SCH (22:38)
[2016-04-15] MEDS: chlordiazePOXIDE HCL 25 MG CAPSULE PO SCH (22:38)
[2016-04-15] MEDS: THIAMINE HCL 100 MG TABLET (FP) PO SCH (22:38)
[2016-04-15] MEDS: LATANOPROST 0.005% OPHTH SOLN 2.5ML BOTTLE OU SCH (22:38)
[2016-04-15] MEDS: NAPROXEN 500 MG TABLET (FP) PO PRN (22:39)
[2016-04-15] MEDS: CYCLOBENZAPRINE HCL 10 MG TABLET (FP) PO PRN (22:40)
[2016-04-15] MEDS: BUDESONIDE/FORMETEROL FUMARATE 80/4.5 mcg INHALER IH SCH (23:01)
[2016-04-15 23:09] LABS: PH,URINE 5.5 (5.0-8.0); URINE APPEARANCE CLEAR; URINE BILIRUBIN NEGATIVE (NEGATIVE); URINE BLOOD NEGATIVE (NEGATIVE); URINE COLOR YELLOW; URINE GLUCOSE (UA) NEGATIVE (NEGATIVE); URINE KETONE NEGATIVE (NEGATIVE); URINE LEUK ESTERASE NEGATIVE (NEGATIVE); URINE NITRITE NEGATIVE (NEGATIVE); URINE PROTEIN NEGATIVE (NEGATIVE); URINE UROBILINOGEN 0.2 E.U/dl E.U./dl (0.2-1.0)
[2016-04-16] MEDS: chlordiazePOXIDE HCL 25 MG CAPSULE PO SCH ×4 (05:47→22:52)
--- NOTE | 2016-04-16 09:40 | CONSULT ---
[facility] Psychiatric Consult - Data Date of interview: 04/16/16 Admission source: [facility] Identifying data: This is 55 years old male with no psychiatric hospitalization history intioxicated with Heroin, Alcohol and Nicotine Substance Abuse History: - Smoking Cessation. Smoking history: Current every day smoker. Have you smoked in the past 12 months: Yes. Aproximately how many cigarettes per day: 10. Cigars Per Day: 0. Hx Chewing Tobacco Use: No. Initiated information on smoking cessation: Yes. 'Breaking Loose' booklet given : 04/15/16. - Substance & Tx. History. Hx Alcohol Use: Yes. Hx Substance Use : Yes. Substance Use Type: Alcohol, Heroin, Opiates. Hx Substance Use Treatment: Yes. - Substances Abused. Alcohol. Route: Oral. Frequency: Daily. Amount used: 1 pint Baccardi dark. Age of first use: 18. Date of Last Use: 04/15/16. Heroin. Route: Inhalation. Frequency: Daily. Amount used: 10 BAGS. Age of first use: 45. Date of Last Use: 04/15/16 Medical History: Weight loss history, Asthma, GERD, Glaucoma history, HepC+, Psychiatric History: Patient reprots history of depression and anxiety, as per com moreer there is a history of Bipolar disorder and MDD. Patient reports taking prior to admission for his insomnia: Seroquel 100mg po qhs Physical/Sexual Abuse/Trauma History: Denies Additional Comment: Seroquel 100mg po qhs Mental Status Exam - Mental Status Exam Alert and Oriented to: Person Cognitive Function: Fair Patient Appearance: Unkempt Mood: Sad Affect: Flat Patient Behavior: Sedated Speech Pattern: Delayed Voice Loudness: Mildly Soft/Quiet Thought Process: Circumstantial Thought Disorder: Being Controlled Hallucinations: Denies Suicidal Ideation: Denies Homicidal Ideation: Denies Insight/Judgement: Fair Sleep: Difficulty falling asleep Appetite: Weight loss Muscle strength/Tone: Mild Hypotonicity Gait/Station: Shuffling Additional Comments: Seroquel 100mg po qhs Psychiatric Findings - Problem List ([place] 1, 2,3) (1) Alcohol dependence with uncomplicated withdrawal Current Visit: Yes Status: Acute (2) Nicotine dependence Current Visit: Yes Status: Acute Qualifiers: Nicotine product type: cigarettes Substance use status: in withdrawal Qualified Code(s): F17.213 - Nicotine dependence, cigarettes, with withdrawal (3) Opioid dependence with withdrawal Current Visit: Yes Status: Acute (4) Alcohol dependence Current Visit: No Status: Acute (5) Bipolar I disorder, most recent episode depressed Current Visit: No Status: Suspected (6) Opioid dependence Current Visit: No Status: Acute (7) MDD (major depressive disorder) Current Visit: No Status: Suspected (8) Drug-induced mood disorder Current Visit: Yes Status: Acute - Initial Treatment Plan Initial Treatment Plan: Seroquel 100mg po qhs
[2016-04-16] MEDS ORDERED: METHADONE HCL 10 MG TABLET (FOR DETOX USE ONLY) PO SCH (10:00)
[2016-04-16 10:04] LABS: MCH 28.3 pg (25.7-33.7); MCHC 32.8 g/dl (32.0-35.9); MEAN CELL VOLUME 86.4 fl (80-96); MEAN PLT VOLUME 7.1 fl (7.5-11.1); PLATELET COUNT 301 K/MM3 (134-434); RDW 15.6 % (11.9-15.9); WHITE BLOOD COUNT 5.8 K/mm3 (4.0-10.0)
[2016-04-16 10:16] LABS: ALBUMIN 3.3 g/dl (3.4-5.0); ALK PHOS 84 U/L (45-117); ANION GAP 9 (8-16); BILIRUBIN,TOTAL 0.8 mg/dL (0.2-1.0); CALCIUM 8.3 mg/dL (8.5-10.1); CO2 27 mmol/L (21-32); CREATININE 0.9 mg/dL (0.7-1.3); GLUCOSE,RANDOM 82 mg/dL (74-106); SGOT/AST 12 U/L (15-37); SGPT/ALT 13 U/L (12-78); TOT PROT 6.4 g/dl (6.4-8.2)
[2016-04-16] MEDS: PRENATAL VITAMINS W/ FOLIC ACID TABLET (FP) PO SCH (10:40)
[2016-04-16] MEDS: RANITIDINE HCL 150 MG TABLET (FP) PO SCH ×2 (10:40→22:52)
[2016-04-16] MEDS: BUDESONIDE/FORMETEROL FUMARATE 80/4.5 mcg INHALER IH SCH ×2 (11:30→22:53)
--- NOTE | 2016-04-16 13:54 | PN ---
S CIWA - CIWA Score Nausea/Vomitin Muscle Tremors: 3 Anxiety: 3 Agitation: 3 Paroxysmal Sweats: 3 Orientation: 0-Oriented Tacttile Disturbances: 2-Mild Itch/Numbness/Burn Auditory Disturbances: 0-None Visual Disturbances: 0-None Headache: 0-None Present CIWA-Ar Total Score: 16 BHS COWS - Scale Resting Pulse: 0= [place] 80 or Below Sweatin=Flushed/Facial Moisture Restless Observation: 1= Difficult to Sit Still Pupil Size: 1= Pupils >than Normal Bone or Joint Aches: 2= Severe Diffuse Aches Runny Nose/ Eye Tearin= Nasal Congestion GI Upset > 30mins: 1= Stomach Cramp Tremor Observation of Outstretched Hands: 1= Tremor [place], Not Seen Yawning Observation: 1= 1-2x During Session Anxiety or Irritability: 2=Irritable/Anxious Goose Flesh Skin: 0=Smooth Skin COWS Score: 12 S Progress Note (SOAP) Subjective: interrupted sleep, sweats, shakes lbp Objective: 04/16/16 13:53 Vital Signs Temperature 97.7 F 04/16/16 09:40 Pulse Rate 61 04/16/16 09:40 Respiratory Rate 20 04/16/16 09:40 Blood Pressure 119/72 04/16/16 09:40 O2 Sat by Pulse Oximetry (%) Laboratory Tests 04/15/16 04/16/16 04/16/16 22:05 07:00 07:00 WBC 5.8 RBC 4.48 Hgb 12.7 D Hct 38.7 D MCV 86.4 MCHC 32.8 RDW 15.6 Plt Count 301 MPV 7.1 L Sodium 138 Potassium 3.8 Chloride 102 Carbon Dioxide 27 Anion Gap 9 BUN 12 Creatinine 0.9 Creat Clearance w eGFR > 60 Random Glucose 82 D Calcium 8.3 L Total Bilirubin 0.8 D AST 12 L ALT 13 D Alkaline Phosphatase 84 Total Protein 6.4 Albumin 3.3 L D Urine Color Yellow Urine Appearance Clear Urine pH 5.5 Ur Specific [place] >= 1.030 Urine Protein Negative Urine Glucose (UA) Negative Urine Ketones Negative Urine Blood Negative Urine Nitrite Negative Urine Bilirubin Negative Urine Urobilinogen 0.2 e.u/dl Ur Leukocyte Esterase Negative RPR Titer 04/16/16 07:00 WBC RBC Hgb Hct MCV MCHC RDW Plt Count MPV Sodium Potassium Chloride Carbon Dioxide Anion Gap BUN Creatinine Creat Clearance w eGFR Random Glucose Calcium Total Bilirubin AST ALT Alkaline Phosphatase Total Protein Albumin Urine Color Urine Appearance Urine pH Ur Specific [place] Urine Protein Urine Glucose (UA) Urine Ketones Urine Blood Urine Nitrite Urine Bilirubin Urine Urobilinogen Ur Leukocyte Esterase RPR Titer Nonreactive pt aox3 in nad ambulating 04/16/16 13:53 Assessment: 04/16/16 13:53 withdrawl sx's lbp Plan: cont. detox increase fluids motrin prn
--- NOTE | 2016-04-16 16:15 | EKG ---
Test Reason : Blood Pressure : / mmHG Vent. Rate : 078 BPM Atrial Rate : 078 BPM P-R Int : 166 ms QRS Dur : 092 ms QT Int : 374 ms P-R-T Axes : 051 052 066 degrees QTc Int : 426 ms NORMAL SINUS RHYTHM MINIMAL VOLTAGE CRITERIA FOR LVH, MAY BE NORMAL VARIANT BORDERLINE ECG NO PREVIOUS ECGS AVAILABLE Confirmed by STAN GARCIA MD ([id number]) on 04/16/2016 4:15:19 PM Referred By: Confirmed By:STAN GARCIA MD
[2016-04-16] MEDS: THIAMINE HCL 100 MG TABLET (FP) PO SCH (22:51)
[2016-04-16] MEDS: NAPROXEN 500 MG TABLET (FP) PO PRN (22:52)
[2016-04-16] MEDS: CYCLOBENZAPRINE HCL 10 MG TABLET (FP) PO PRN (22:52)
[2016-04-16] MEDS: LATANOPROST 0.005% OPHTH SOLN 2.5ML BOTTLE OU SCH (22:52)
[2016-04-16] MEDS: QUEtiapine FUMARATE 100 MG TABLET (FP) PO SCH (22:52)
[2016-04-17] MEDS: chlordiazePOXIDE HCL 25 MG CAPSULE PO SCH ×3 (06:07→17:32)
[2016-04-17] MEDS: BUDESONIDE/FORMETEROL FUMARATE 80/4.5 mcg INHALER IH SCH ×2 (11:02→22:57)
[2016-04-17] MEDS: METHADONE HCL 5 MG TABLET (FOR DETOX USE ONLY) PO SCH (11:03)
[2016-04-17] MEDS: PRENATAL VITAMINS W/ FOLIC ACID TABLET (FP) PO SCH (11:03)
[2016-04-17] MEDS: RANITIDINE HCL 150 MG TABLET (FP) PO SCH ×2 (11:05→22:57)
--- NOTE | 2016-04-17 14:23 | PN ---
[facility] CIWA - CIWA Score Nausea/Vomitin-Mild Nausea/No Vomiting Muscle Tremors: 3 Anxiety: 3 Agitation: 1-Slight > Activity Paroxysmal Sweats: 2 Orientation: 2-Disoriented Date<2 days Tacttile Disturbances: 2-Mild Itch/Numbness/Burn Auditory Disturbances: 0-None Visual Disturbances: 0-None Headache: 0-None Present CIWA-Ar Total Score: 14 S COWS - Scale Resting Pulse: 0= [place] 80 or Below Sweatin= Chills/Flushing Restless Observation: 0= Sits Still Pupil Size: 0= Normal to Room Light Bone or Joint Aches: 1= Mild Discomfort Runny Nose/ Eye Tearin= Runny Nose/Eyes GI Upset > 30mins: 0= None Tremor Observation of Outstretched Hands: 2= Slight Tremor Visible Yawning Observation: 1= 1-2x During Session Anxiety or Irritability: 2=Irritable/Anxious Goose Flesh Skin: 3=Piloerection COWS Score: 12 S Progress Note (SOAP) Subjective: Fatigue, Dry Mouth, Tremors. Objective: PT. A & O 2 (DISORIENTED ABOUT DAY / DATE). 04/17/16 14:20 Vital Signs Temperature 97.3 F L 04/17/16 10:46 Pulse Rate 50 L 04/17/16 10:46 Respiratory Rate 18 04/17/16 10:46 Blood Pressure 124/70 04/17/16 10:46 O2 Sat by Pulse Oximetry (%) Laboratory Last Values WBC 5.8 K/mm3 (4.0-10.0) 04/16/16 07:00 RBC 4.48 M/mm3 (4.00-5.60) 04/16/16 07:00 Hgb 12.7 GM/dL (11.7-16.9) D 04/16/16 07:00 Hct 38.7 % (35.4-49) D 04/16/16 07:00 MCV 86.4 fl (80-96) 04/16/16 07:00 MCHC 32.8 g/dl (32.0-35.9) 04/16/16 07:00 RDW 15.6 % (11.9-15.9) 04/16/16 07:00 Plt Count 301 K/MM3 (134-434) 04/16/16 07:00 MPV 7.1 fl (7.5-11.1) L 04/16/16 07:00 Sodium 138 mmol/L (136-145) 04/16/16 07:00 Potassium 3.8 mmol/L (3.5-5.1) 04/16/16 07:00 Chloride 102 mmol/L (98-107) 04/16/16 07:00 Carbon Dioxide 27 mmol/L (21-32) 04/16/16 07:00 Anion Gap 9 (8-16) 04/16/16 07:00 BUN 12 mg/dL (7-18) 04/16/16 07:00 Creatinine 0.9 mg/dL (0.7-1.3) 04/16/16 07:00 Creat Clearance w eGFR > 60 (>60) 04/16/16 07:00 Random Glucose 82 mg/dL (74-106) D 04/16/16 07:00 Calcium 8.3 mg/dL (8.5-10.1) L 04/16/16 07:00 Total Bilirubin 0.8 mg/dL (0.2-1.0) D 04/16/16 07:00 AST 12 U/L (15-37) L 04/16/16 07:00 ALT 13 U/L (12-78) D 04/16/16 07:00 Alkaline Phosphatase 84 U/L (45-117) 04/16/16 07:00 Total Protein 6.4 g/dl (6.4-8.2) 04/16/16 07:00 Albumin 3.3 g/dl (3.4-5.0) L D 04/16/16 07:00 Urine Color Yellow 04/15/16 22:05 Urine Appearance Clear 04/15/16 22:05 Urine pH 5.5 (5.0-8.0) 04/15/16 22:05 Ur Specific [place] >= 1.030 (1.001-1.035) 04/15/16 22:05 Urine Protein Negative (NEGATIVE) 04/15/16 22:05 Urine Glucose (UA) Negative (NEGATIVE) 04/15/16 22:05 Urine Ketones Negative (NEGATIVE) 04/15/16 22:05 Urine Blood Negative (NEGATIVE) 04/15/16 22:05 Urine Nitrite Negative (NEGATIVE) 04/15/16 22:05 Urine Bilirubin Negative (NEGATIVE) 04/15/16 22:05 Urine Urobilinogen 0.2 e.u/dl E.U./dl (0.2-1.0) 04/15/16 22:05 Ur Leukocyte Esterase Negative (NEGATIVE) 04/15/16 22:05 RPR Titer Nonreactive (NONREACTIVE) 04/16/16 07:00 LABS NOTED. Assessment: 04/17/16 14:21 WITHDRAWAL SYMPTOMS. Plan: CONTINUE DETOX. ADVISED PATIENT TO FOLLOW-UP WITH [facility] / REHAB MEDICAL PROVIDER AFTER DISCHARGE FROM DETOX FOR GENERAL MEDICAL ASSESSMENT AND FOR ABNORMAL LAB VALUES.
[2016-04-17] MEDS: LATANOPROST 0.005% OPHTH SOLN 2.5ML BOTTLE OU SCH (22:57)
[2016-04-17] MEDS: chlordiazePOXIDE 5 MG CAPSULE PO SCH (22:57)
[2016-04-17] MEDS: QUEtiapine FUMARATE 100 MG TABLET (FP) PO SCH (22:57)
[2016-04-17] MEDS: THIAMINE HCL 100 MG TABLET (FP) PO SCH (22:57)
[2016-04-18] MEDS: chlordiazePOXIDE 5 MG CAPSULE PO SCH ×3 (05:58→18:12)
[2016-04-18] MEDS: PRENATAL VITAMINS W/ FOLIC ACID TABLET (FP) PO SCH (11:28)
[2016-04-18] MEDS: BUDESONIDE/FORMETEROL FUMARATE 80/4.5 mcg INHALER IH SCH ×2 (11:28→23:19)
[2016-04-18] MEDS: METHADONE HCL 5 MG TABLET (FOR DETOX USE ONLY) PO SCH (11:28)
[2016-04-18] MEDS: RANITIDINE HCL 150 MG TABLET (FP) PO SCH ×2 (11:28→23:20)
--- NOTE | 2016-04-18 13:37 | PN ---
[facility]HS Progress Note (SOAP) Subjective: ALERT,IRRITABLE,ANXIOUS,INTERRUPTED SLEEP,OLD INJURY OF RIGHT KNEE,STATED USING CANE FOR LAST 3 YEARS Objective: 04/18/16 13:37 Vital Signs Temperature 98.1 F 04/18/16 10:32 Pulse Rate 65 04/18/16 10:32 Respiratory Rate 20 04/18/16 10:32 Blood Pressure 110/69 04/18/16 10:32 O2 Sat by Pulse Oximetry (%) Assessment: 04/18/16 13:37 WITHDRAWAL SYMPTOM Plan: CONTINUE DETOX,CANE WALKING
[2016-04-18] MEDS: QUEtiapine FUMARATE 100 MG TABLET (FP) PO SCH (23:19)
[2016-04-18] MEDS: chlordiazePOXIDE HCL 10 MG CAPSULE PO SCH (23:19)
[2016-04-18] MEDS: THIAMINE HCL 100 MG TABLET (FP) PO SCH (23:20)
[2016-04-18] MEDS: LATANOPROST 0.005% OPHTH SOLN 2.5ML BOTTLE OU SCH (23:20)
[2016-04-19] MEDS: chlordiazePOXIDE HCL 10 MG CAPSULE PO SCH ×4 (00:02→17:36)
[2016-04-19] MEDS ORDERED: METHADONE HCL 10 MG TABLET (FOR DETOX USE ONLY) PO SCH (10:00)
[2016-04-19] MEDS: BUDESONIDE/FORMETEROL FUMARATE 80/4.5 mcg INHALER IH SCH ×2 (10:10→22:55)
[2016-04-19] MEDS: PRENATAL VITAMINS W/ FOLIC ACID TABLET (FP) PO SCH (10:10)
[2016-04-19] MEDS: RANITIDINE HCL 150 MG TABLET (FP) PO SCH ×2 (10:10→22:40)
[2016-04-19] MEDS: NAPROXEN 500 MG TABLET (FP) PO PRN ×2 (12:01→22:40)
--- NOTE | 2016-04-19 13:52 | PN ---
S Progress Note (SOAP) Subjective: alert,irritable,anxious,history of fall yesterday evening,clear by [facility] er to return for continuation of detox Objective: 04/19/16 13:51 Vital Signs Temperature 98.2 F 04/19/16 09:30 Pulse Rate 77 04/19/16 09:30 Respiratory Rate 18 04/19/16 09:30 Blood Pressure 117/81 04/19/16 09:30 O2 Sat by Pulse Oximetry (%) Assessment: 04/19/16 13:51 withdrawal symptom Plan: continue detox,discharge in am,post fall protocol monitoring
[2016-04-19] MEDS: THIAMINE HCL 100 MG TABLET (FP) PO SCH (22:40)
[2016-04-19] MEDS: QUEtiapine FUMARATE 100 MG TABLET (FP) PO SCH (22:53)
[2016-04-19] MEDS: LATANOPROST 0.005% OPHTH SOLN 2.5ML BOTTLE OU SCH (22:55)
[2016-04-20] MEDS ORDERED: METHADONE HCL 5 MG TABLET (FOR DETOX USE ONLY) PO SCH (06:00)
--- NOTE | 2016-04-20 09:52 | PN ---
S Progress Note (SOAP) Subjective: ALERT,NO COMPLAINT Objective: 04/20/16 09:50 Vital Signs Temperature 97.4 F L 04/20/16 06:42 Pulse Rate 63 04/20/16 06:42 Respiratory Rate 16 04/20/16 06:42 Blood Pressure 114/64 04/20/16 06:42 O2 Sat by Pulse Oximetry (%) Assessment: 04/20/16 09:50 DETOX COMPLETED,NO WITHDRAWAL SYMPTOM Plan: DISCHARGE TODAY,FOLLOW UP WITH AFTER CARE PROGRAM ARRANGEMENT AND PMD FOR MEDICAL PROBLEM
--- NOTE | 2016-04-20 09:55 | DS ---
[facility] Detox Discharge Summary Admission Date: 04/15/16 Discharge Date: 04/20/16 - History Present History: Alcohol Dependence, Opioid Dependence Additional Comments: FOLLOW UP WITH AFTER CARE PROGRAM ARRANGEMENT AND PMD FOR MEDICAL PROBLEM AND OWN ORTHOPEDIST FOR OLD KNEE INJURY Pertinent Past History: ASTHMA GERD HEPATITIS C OLD INJURY OF RIGHT KNEE BIPOLAR 2 DISORDER GLAUCOMA - Physical Exam Results Vital Signs: Vital Signs Temperature 97.4 F L 04/20/16 06:42 Pulse Rate 63 04/20/16 06:42 Respiratory Rate 16 04/20/16 06:42 Blood Pressure 114/64 04/20/16 06:42 O2 Sat by Pulse Oximetry (%) Pertinent Admission Physical Exam Findings: WITHDRAWAL SYMPTOM - Treatment Hospital Course: Detox Protocol Followed, Detoxed Safely, Responded well, Discharged Condition Good Patient has Accepted a Rehab Referral to: DECLINED - Medication Discharge Medications: Ambulatory Orders Budesonide/Formeterol Fumarate [SYMBICORT 80/4.5mcg -] 2 puff IH BID #1 inhaler 03/17/16 Naproxen [Naprosyn -] 500 mg PO BID #60 tablet 03/17/16 Quetiapine Fumarate [Seroquel] 100 tab PO HS #30 tablet 03/17/16 Quetiapine Fumarate [Seroquel] 100 mg PO HS #30 tablet 04/16/16 Albuterol Sulfate Inhaler - [Ventolin HFA Inhaler -] 2 inh IH Q4H PRN #1 inhaler 04/20/16 Latanoprost 0.005% Eye Drops [Xalatan 0.005% Eye Drops -] 1 drop OP HS #1 drops 04/20/16 Naproxen [Naprosyn -] 500 mg PO BID PRN #20 tablet 04/20/16 Ranitidine [Zantac -] 150 mg PO BID #60 tablet 04/20/16 - Diagnosis (1) Alcohol dependence with uncomplicated withdrawal Status: Acute (2) Asthma Status: Acute Qualifiers: Asthma severity: mild intermittent Asthma complication type: with status asthmaticus Qualified Code(s): J45.22 - Mild intermittent asthma with status asthmaticus (3) Bipolar disorder Status: Acute Qualifiers: Current episode severity: mild (4) GERD (gastroesophageal reflux disease) Status: Acute Qualifiers: Esophagitis presence: without esophagitis Qualified Code(s): K21.9 - Gastro-esophageal reflux disease without esophagitis (5) Glaucoma Status: Acute Qualifiers: Glaucoma type: unspecified type Laterality: bilateral Qualified Code(s): H40.9 - Unspecified glaucoma (6) Head injury Status: Acute (7) Nicotine dependence Status: Acute Qualifiers: Nicotine product type: cigarettes Substance use status: in withdrawal Qualified Code(s): F17.213 - Nicotine dependence, cigarettes, with withdrawal (8) Opioid dependence with withdrawal Status: Acute (9) Hepatitis C Status: Chronic Qualifiers: Viral hepatitis chronicity: chronic (10) Knee injury Status: Acute (11) Use of cane as ambulatory aid Status: Acute - AMA Did Patient Leave Against Medical Advice: No
[2016-04-20] MEDS: PRENATAL VITAMINS W/ FOLIC ACID TABLET (FP) PO SCH (10:56)
[2016-04-20] MEDS: BUDESONIDE/FORMETEROL FUMARATE 80/4.5 mcg INHALER IH SCH (10:56)
[2016-04-20] MEDS: RANITIDINE HCL 150 MG TABLET (FP) PO SCH (10:56)
[2016-04-20 11:22] VITALS: BP 124/79; PULSE 71; TEMP 97.1
== END 2016-04-20 11:30 | disposition home or self-care (01) | DRG 897 ==
LOC: YASAS 15:48 → Y6N 18:28
PROVIDERS: ADMIT Internal Medicine Addiction Medicine; ATTEND Internal Medicine Addiction Medicine
PROC: HZ2ZZZZ Detoxification Services for Substance Abuse Treatment (ICD-10-PCS; principal; 2016-04-15)
DX: F11.23 Opioid dependence with withdrawal (principal); F33.9 Major depressive disorder, recurrent, unspecified; J45.22 Mild intermittent asthma with status asthmaticus; F10.230 Alcohol dependence with withdrawal, uncomplicated; F17.210 Nicotine dependence, cigarettes, uncomplicated; F19.24 Other psychoactive substance dependence with psychoactive substance-induced mood disorder; F31.9 Bipolar disorder, unspecified; K21.9 Gastro-esophageal reflux disease without esophagitis; H40.9 Unspecified glaucoma; B18.2 Chronic viral hepatitis C; R26.2 Difficulty in walking, not elsewhere classified; M54.5 Low back pain; M25.569 Pain in unspecified knee; S09.90XA Unspecified injury of head, initial encounter; W01.198A Fall on same level from slipping, tripping and stumbling with subsequent striking against other object, initial encounter; Y93.E1 Activity, personal bathing and showering; Y92.231 Patient bathroom in hospital as the place of occurrence of the external cause
CPT/HCPCS: 36415; 80053; 81003; 85027; 86593; 93005; 93010

== ENCOUNTER 2016-04-18 18:04 | Emergency (ER) | payer OTHER ==
[2016-04-18 18:19] VITALS: BP 122/87; PULSE 70; TEMP 98.5; BMI 25.0
[2016-04-18] MEDS ORDERED: ACETAMINOPHEN 325 MG TABLET (FP) PO ONE (21:21)
--- NOTE | 2016-04-18 21:22 | PDOC ---
History of Present Illness - General History Source: Patient Exam Limitations: No Limitations - History of Present Illness Initial Comments: 04/18/16 21:56 The patient is a 55 year old male with a significant past medical history of alcohol abuse, sent from rehab center to the Emergency Department after falling in the shower. He reports that he fell in the shower at the rehab center, hitting his forehead on the edge of the shower. He reports swelling above his eyebrow, and a headache. He denies loss of consciousness. He also reports knee pain, but admits that this may be chronic as he has a right knee replacement. He denies taking anything for the pain. He states that he is at the rehab center for alcohol detox. The patient denies dizziness, or blurry vision. Patient denies nausea, vomiting , and diarrhea. Patient denies neck pain, or back pain. Patient denies chest pain, or shortness of breath. Past Medical Hx: asthma Social Hx: alcohol abuse, cigarette smoking Surgical Hx: right knee replacement (2 years ago) <Louisa Hinds - Last Filed: 04/18/16 21:55> <Maria Esther Gibson - Last Filed: 04/18/16 22:46> - General Chief Complaint: Injury Stated Complaint: FALL Time Seen by Provider: 04/18/16 19:28 Past History <Louisa Hinds - Last Filed: 04/18/16 21:55> - Past Medical History Anemia: No Asthma: Yes Cancer: No Cardiac Disorders: No CVA: No COPD: No CHF: No Dementia: No Diabetes: No GI Disorders: Yes Disorders: No HTN: No Hypercholesterolemia: No Kidney Stones: No Liver Disease: No Suicide Attempt (Hx): No Seizures: No Thyroid Disease: No - Surgical History Abdominal Surgery: No Appendectomy: No Cardiac Surgery: No Cholecystectomy: No Lung Surgery: No Neurologic Surgery: No Orthopedic Surgery: Yes (R KNEE SX DUE TO BASEBALL BAT TRUAMA. FX KNEE CAP-01/24, RIGHT) - Reproductive History Testicular Surgery: No - Psycho/Social/Smoking Cessation Hx Anxiety: Yes Suicidal Ideation: No Smoking History: Current every day smoker Have you smoked in the past 12 months: Yes Number of Cigarettes Smoked Daily: 10 Cigars Per Day: 0 Information on smoking cessation initiated: No 'Breaking Loose' booklet given: 04/15/16 Hx Alcohol Use: Yes Drug/Substance Use Hx: Yes (heroin) Substance Use Type: Alcohol, Heroin, Opiates Hx Substance Use Treatment: Yes <Maria Esther Gibson - Last Filed: 04/18/16 22:46> - Past Medical History Allergies/Adverse Reactions: Allergies Allergy/AdvReac Type Severity Reaction Status Date / Time No Known Allergies Allergy Verified 04/15/16 17:18 Home Medications: Ambulatory Orders Albuterol Sulfate Inhaler - [Ventolin HFA Inhaler -] 2 inh IH Q4H PRN #1 inhaler 03/17/16 Budesonide/Formeterol Fumarate [SYMBICORT 80/4.5mcg -] 2 puff IH BID #1 inhaler 03/17/16 Latanoprost 0.005% Eye Drops [Xalatan 0.005% Eye Drops -] 1 drop OP HS #1 drops 03/17/16 Naproxen [Naprosyn -] 500 mg PO BID #60 tablet 03/17/16 Quetiapine Fumarate [Seroquel] 100 tab PO HS #30 tablet 03/17/16 Quetiapine Fumarate [Seroquel] 100 mg PO HS #30 tablet 04/16/16 Review of Systems - Review of Systems Able to Perform ROS?: Yes Comments:: 04/18/16 21:56 GENERAL/CONSTITUTIONAL: No fever or chills. No weakness. HEAD, EYES, EARS, NOSE AND THROAT: + bump on forehead, + headache. No change in vision. No ear pain or discharge. No sore throat. CARDIOVASCULAR: No chest pain or shortness of breath. RESPIRATORY: No cough, wheezing, or hemoptysis. GASTROINTESTINAL: No nausea, vomiting, diarrhea or constipation. GENITOURINARY: No dysuria, frequency, or change in urination. MUSCULOSKELETAL: No joint or muscle swelling or pain. No neck or back pain. SKIN: No rash NEUROLOGIC: No vertigo, loss of consciousness, or change in strength/sensation. ENDOCRINE: No increased thirst. No abnormal weight change. HEMATOLOGIC/LYMPHATIC: No anemia, easy bleeding, or history of blood clots. ALLERGIC/IMMUNOLOGIC: No hives or skin allergy. <Louisa Hinds - Last Filed: 04/18/16 21:55> *Physical Exam - Vital Signs Last Vital Signs Temp Pulse Resp BP Pulse Ox 98.5 F 70 18 122/87 99 04/18/16 18:12 04/18/16 18:12 04/18/16 18:12 04/18/16 18:12 04/18/16 18:12 - Physical Exam Comments: 04/18/16 21:58 GENERAL: Awake, alert, and fully oriented, in no acute distress HEAD: Bump above right brow. No blood or ecchymosis. EYES: PERRLA, EOMI, sclera anicteric, conjunctiva clear ENT: Auricles normal inspection, hearing grossly normal, nares patent, oropharynx clear without exudates. Moist mucosa NECK: Normal ROM, supple, no lymphadenopathy, JVD, or masses LUNGS: Breath sounds equal, clear to auscultation bilaterally. No wheezes, and no crackles HEART: Regular rate and rhythm, normal S1 and S2, no murmurs, rubs or gallops ABDOMEN: Soft, nontender, normoactive bowel sounds. No guarding, no rebound. No masses EXTREMITIES: Normal range of motion, no edema. No clubbing or cyanosis. No cords, erythema, or tenderness NEUROLOGICAL: Cranial nerves II through XII grossly intact. Normal speech, normal gait SKIN: Warm, Dry, normal turgor, no rashes or lesions noted. <Louisa Hinds - Last Filed: 04/18/16 21:55> - Vital Signs Last Vital Signs Temp Pulse Resp BP Pulse Ox 98.5 F 70 18 122/87 99 04/18/16 18:12 04/18/16 18:12 04/18/16 18:12 04/18/16 18:12 04/18/16 18:12 <Maria Esther Gibson - Last Filed: 04/18/16 22:46> ED Treatment Course - Medications Given in the ED: ED Medications Discontinued Medications Generic Name Dose Route Start Last Admin Trade Name Freq PRN Reason Stop Dose Admin Acetaminophen 650 mg 04/18/16 21:21 04/18/16 21:39 Tylenol - PO 04/18/16 21:22 650 mg ONCE ONE Administration <Louisa Hinds - Last Filed: 04/18/16 21:55> Medical Decision Making - Medical Decision Making 04/18/16 22:43 Pt came to the ER after slipping in the shower. He was sent from the alcohol rehab facility where he lives currently. He has no weakness, minimal headache and normal neuro exam. Pt was placed for a head CT, but he was asking for dinner. He was given a tray and after dinner he is now refusing to go for head CT. He wants to be discharged. He states that he wants to go to [facility] where he lives to follow for a head CT. <Maria Esther Gibson - Last Filed: 04/18/16 22:46> *DC/Admit/Observation/Transfer - Attestations Scribe Attestion: 04/18/16 21:59 Documentation prepared by Louisa Hinds, acting as medical staff manager for Maria Esther Gibson MD. <Louisa Hinds - Last Filed: 04/18/16 21:55> - Discharge Dispostion Admit: No <Maria Esther Gibson - Last Filed: 04/18/16 22:46> Diagnosis at time of Disposition: Head injury - Discharge Dispostion Disposition: HOME Condition at time of disposition: Stable - Patient Instructions Printed Discharge Instructions: DI for Closed Head Injury
[2016-04-18] MEDS ORDERED: ACETAMINOPHEN 325 MG TABLET (FP) ONE (21:33)
== END 2016-04-18 22:49 | disposition other institution (70) ==
LOC: JER 18:04
DX: S00.83XA Contusion of other part of head, initial encounter (principal); R51 Headache; W18.2XXA Fall in (into) shower or empty bathtub, initial encounter; Y93.E1 Activity, personal bathing and showering; Y92.231 Patient bathroom in hospital as the place of occurrence of the external cause; F11.20 Opioid dependence, uncomplicated; F10.20 Alcohol dependence, uncomplicated; F17.210 Nicotine dependence, cigarettes, uncomplicated
CPT/HCPCS: 99283-25

== ENCOUNTER 2017-12-05 10:41 | Inpatient (IN) | payer OTHER ==
[2017-12-05 11:09] VITALS: BMI 21.9
--- NOTE | 2017-12-05 11:48 | HP ---
CIWA Score - CIWA Score Nausea/Vomitin Muscle Tremors: 3 Anxiety: 2 Agitation: 2 Paroxysmal Sweats: 1-Minimal Palms Moist Orientation: 0-Oriented Tacttile Disturbances: 1-Very Mild Itch/Numbness Auditory Disturbances: 1-Very Mild Visual Disturbances: 1-Very Mild Sensitivity Headache: 2-Mild CIWA-Ar Total Score: 15 Admission ROS BHS - HPI Chief Complaint: i need help to stop drinking alcohol Allergies/Adverse Reactions: Allergies Allergy/AdvReac Type Severity Reaction Status Date / Time No Known Allergies Allergy Verified 12/05/17 12:14 History of Present Illness: this 57 years old male with alcohol dependence,seeking detox,withdrawal symptom, last treatment 04/15/16 to 04/20/16 [facility] syncope hepatitis c follow up by pmd nicotine dependence weight loss multiple admissions in detox but keep drinking no significant period of sobriety Exam Limitations: No Limitations - Ebola screening Have you traveled outside of the country in the last 21 days: No Have you been sick,other than usual withdrawal symptoms: No - Review of Systems Constitutional: Loss of Appetite, Malaise, Night Sweats, Changes in sleep, Weakness, Unintentional Wgt. Loss EENT: reports: Tearing, Nose Congestion Respiratory: reports: No Symptoms reported Cardiac: reports: No Symptoms Reported GI: reports: Diarrhea, Nausea, Vomiting, Abdominal cramping : reports: No Symptoms Reported Musculoskeletal: reports: Back Pain, Muscle Pain Integumentary: reports: Dryness Neuro: reports: Headache, Tremors Endocrine: reports: No Symptoms Reported Hematology: reports: No Symptoms Reported Psychiatric: reports: No Sypmtoms Reported, Judgement Intact, Mood/Affect Appropiate, Orientated x3 Patient History - Patient Medical History Hx Anemia: No Hx Asthma: Yes (on albuterol inhaler) Hx Chronic Obstructive Pulmonary Disease (COPD): No Hx Cancer: No Hx Cardiac Disorders: No Hx Congestive Heart Failure: No Hx Hypertension: No Hx Hypercholesterolemia: No Hx Pacemaker: No HX Cerebrovascular Accident: No Hx Seizures: No Hx Dementia: No Hx Diabetes: No Hx Gastrointestinal Disorders: Yes Hx Liver Disease: No Hx Genitourinary Disorders: No Hx Sexually Transmitted Disorders: No Hx Renal Disease (ESRD): No Hx Thyroid Disease: No Hx Human Immunodeficiency Virus (HIV): No (2018 negative last) Hx Hepatitis C: Yes (follow up with pmd) Hx Depression: No Hx Suicide Attempt: No Hx Bipolar Disorder: Yes (NO MED) Hx Schizophrenia: No Other Medical History: no suicidal,no homicidal - Patient Surgical History Past Surgical History: Yes Hx Neurologic Surgery: No Hx Cataract Extraction: No Hx Cardiac Surgery: No Hx Lung Surgery: No Hx Breast Surgery: No Hx Breast Biopsy: No Hx Abdominal Surgery: No Hx Appendectomy: No Hx Cholecystectomy: No Hx Genitourinary Surgery: No Hx Section: No Hx Orthopedic Surgery: Yes (R KNEE SX DUE TO BASEBALL BAT TRUAMA. FX KNEE CAP-, RIGHT) Other Surgical History: INJURED RT. SHOULDER IN 05/2011 WHILE PLAYING BASE BALL Anesthesia Reaction: No - PPD History Date: 01/11/16 Results: 0 mm PPD to be Administered?: Yes - Smoking Cessation Smoking history: Current every day smoker Have you smoked in the past 12 months: Yes Aproximately how many cigarettes per day: 10 Cigars Per Day: 0 Hx Chewing Tobacco Use: No Initiated information on smoking cessation: Yes 'Breaking Loose' booklet given: 12/05/17 - Substance & Tx. History Hx Alcohol Use: Yes Hx Substance Use: No Substance Use Type: Alcohol Hx Substance Use Treatment: Yes ([facility] 04/15/16 to 04/20/16) - Substances Abused Alcohol Route: Oral Frequency: Daily Amount used: 3 pints of vodka Age of first use: 13 Date of Last Use: 12/05/17 Family Disease History - Family Disease History Family Disease History: [place]: Father (ALCOHOL,STOMACH,), Mother (ALCOHOL, STOMACH,), Other: Father, Mother Admission Physical Exam [facility] - Vital Signs Vital Signs: Vital Signs - 24 hr 12/05/17 11:04 Temperature 97.1 F L Pulse Rate 76 Respiratory 18 Rate Blood Pressure 128/69 - Physical General Appearance: Yes: Moderate Distress, Tremorous, Irritable, Sweating, Anxious HEENTM: Yes: Normal ENT Inspection, JOSE, Pharynx Normal Respiratory: Yes: Lungs Clear, Normal Breath Sounds, No Respiratory Distress, Other (history of astma) Neck: Yes: Within Normal Limits, Supple, Trachea in good position Breast: Yes: Breast Exam Deferred Cardiology: Yes: Regular Rhythm, Regular Rate, S1, S2 Abdominal: Yes: Within Normal Limits, Normal Bowel Sounds, Non Tender, Soft Genitourinary: Yes: Within Normal Limits Back: Yes: Muscle Spasm Musculoskeletal: Yes: Back pain, Joint Stiffness, Muscle Pain Extremities: Yes: Tremors 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 NML intact, Alert, Motor Strength 5/5 Integumentary: Yes: Dry Lymphatic: Yes: Within Normal Limits - Diagnostic (1) Alcohol dependence with uncomplicated withdrawal Current Visit: No Status: Acute (2) Asthma Current Visit: No Status: Acute Qualifiers: Asthma severity: mild intermittent Asthma complication type: with status asthmaticus (3) Bipolar disorder Current Visit: No Status: Acute Qualifiers: Current episode severity: mild (4) GERD (gastroesophageal reflux disease) Current Visit: No Status: Acute Qualifiers: Esophagitis presence: without esophagitis Qualified Code(s): K21.9 - Gastro -esophageal reflux disease without esophagitis (5) Nicotine dependence Current Visit: No Status: Acute Qualifiers: Nicotine product type: cigarettes Substance use status: in withdrawal Qualified Code(s): F17.213 - Nicotine dependence, cigarettes, with withdrawal (6) Weight loss Current Visit: No Status: Acute (7) Hepatitis C Current Visit: No Status: Chronic Qualifiers: Viral hepatitis chronicity: chronic (8) Bipolar II disorder Current Visit: No Status: Suspected Comment: SEROQUEL (9) Methadone maintenance therapy patient Current Visit: Yes Status: Acute (10) Use of cane as ambulatory aid Current Visit: Yes Status: Acute (11) Back pain Current Visit: Yes Status: Acute Cleared for Admission [facility] - Detox or Rehab [facility] Level of Care: Medically Managed Detox Regimen/Protocol: Librium [facility] Breath Alcohol Content Breath Alcohol Content: 0.032 Urine Drug Screen - Results Drug Screen Negative: No Urine Drug Screen Results: DIDI-Cocaine, OPI-Opiates, MTD-Methadone, FEN-Fentanyl
[2017-12-05] MEDS ORDERED: hydrOXYzine PAMOATE 25 MG CAPSULE (FP) PO PRN (12:04)
[2017-12-05] MEDS ORDERED: MAG HYDROX/AL HYDROX/SIMETH 30 ML UNIT-DOSE CUP PO PRN (12:04)
[2017-12-05] MEDS ORDERED: P-EPHED 60MG/TRIPROLIDI 2.5MG TABLET PO PRN (12:04)
[2017-12-05] MEDS ORDERED: IBUPROFEN 400 MG TABLET (FP) PO PRN (12:04)
[2017-12-05] MEDS ORDERED: guaiFENesin/D-METHORPHAN HB 10 ML UNIT-DOSE CUPS PO PRN (12:04)
[2017-12-05] MEDS ORDERED: MENTHOL/PHENOL 1 EACH UD MM PRN (12:04)
[2017-12-05] MEDS ORDERED: ACETAMINOPHEN 325 MG TABLET (FP) PO PRN (12:04)
[2017-12-05] MEDS ORDERED: chlordiazePOXIDE HCL 25 MG CAPSULE PO PRN (12:04)
[2017-12-05] MEDS ORDERED: MAGNESIUM HYDROX 2400MG/30ML ORAL SUSPENSION 30 ML CUP PO PRN (12:04)
[2017-12-05] MEDS ORDERED: MAGNESIUM CITRATE 300 ML BOTTLE PO PRN (12:04)
[2017-12-05] MEDS ORDERED: LOPERAMIDE HCL 2 MG CAPSULE PO PRN (12:04)
[2017-12-05] MEDS: NICOTINE 21 MG/24 HOURS TOPICAL PATCH TD SCH (15:36)
[2017-12-05] MEDS: chlordiazePOXIDE HCL 25 MG CAPSULE PO SCH ×2 (18:13→23:08)
[2017-12-05 20:51] LABS: URINE APPEARANCE CLEAR; URINE BILIRUBIN NEGATIVE (<2.0 mg/dL); URINE COLOR LTYELLOW; URINE GLUCOSE (UA) NEGATIVE (NEGATIVE); URINE KETONE NEGATIVE (NEGATIVE); URINE LEUK ESTERASE NEGATIVE (NEGATIVE); URINE NITRITE NEGATIVE (NEGATIVE); URINE PROTEIN NEGATIVE (NEGATIVE); URINE UROBILINOGEN NEGATIVE mg/dL (0.2-1.0)
[2017-12-05] MEDS ORDERED: MELATONIN 5 MG TABLETS PO PRN (22:00)
[2017-12-05] MEDS: THIAMINE HCL 100 MG TABLET (FP) PO SCH (23:08)
[2017-12-06] MEDS: chlordiazePOXIDE HCL 25 MG CAPSULE PO SCH ×4 (06:21→22:39)
--- NOTE | 2017-12-06 08:14 | CONSULT ---
[facility] Psychiatric Consult - Data Date of interview: 12/06/17 Admission source: [facility] Identifying data: This is a 57 years old male, single, unsmployed, homeless, with no psychiatric hospitalization history, reports alcohol and nicotine dependence, reporting withdrawal symptoms and seeking detox,. Denies suicidal , homicidal history. Substance Abuse History: - Smoking Cessation. Smoking history: Current every day smoker. Have you smoked in the past 12 months: Yes. Aproximately how many cigarettes per day: 10. Cigars Per Day: 0. Hx Chewing Tobacco Use: No. Initiated information on smoking cessation: Yes. 'Breaking Loose' booklet given : 12/05/17. - Substance & Tx. History. Hx Alcohol Use: Yes. Hx Substance Use : No. Substance Use Type: Alcohol. Hx Substance Use Treatment: Yes ([facility] 04/15 to 04/20/16). - Substances Abused. Alcohol. Route: Oral. Frequency: Daily. Amount used: 3 pints of vodka. Age of first use: 13. Date of Last Use : 12/05/17 Medical History: Ambulates with cane, right knee injury, HepC+, mmtp history, weigth loss history, head trauma history, Syncope history Psychiatric History: Patient reports history of anxiety and depression, denies suicidal, homicidal history, reports insomnia, reports taking prior to admission : Seroquel 100mg po qhs Physical/Sexual Abuse/Trauma History: Denies Additional Comment: Seroqulel 100mg po qhs Mental Status Exam - Mental Status Exam Additional Comments: Seroqulel 100mg po qhs Psychiatric Findings - Problem List ([place] 1, 2,3) (1) Methadone maintenance therapy patient Current Visit: Yes Status: Acute (2) Use of cane as ambulatory aid Current Visit: Yes Status: Acute (3) Alcohol dependence Current Visit: No Status: Acute (4) Alcohol dependence with uncomplicated withdrawal Current Visit: No Status: Acute (5) Head injury Current Visit: No Status: Acute (6) Knee injury Current Visit: No Status: Acute (7) Nicotine dependence Current Visit: No Status: Acute Qualifiers: Nicotine product type: cigarettes Substance use status: in withdrawal Qualified Code(s): F17.213 - Nicotine dependence, cigarettes, with withdrawal (8) Opioid dependence Current Visit: No Status: Acute (9) Weight loss Current Visit: No Status: Acute (10) Hepatitis C Current Visit: No Status: Chronic Qualifiers: Viral hepatitis chronicity: chronic (11) Mood disorder Current Visit: No Status: Chronic (12) Bipolar I disorder, most recent episode depressed Current Visit: No Status: Suspected (13) MDD (major depressive disorder) Current Visit: No Status: Suspected - Initial Treatment Plan Initial Treatment Plan: Seroqulel 100mg po qhs
[2017-12-06] MEDS ORDERED: METHADONE HCL 10 MG TABLET PO ONE (09:58)
[2017-12-06 10:10] LABS: HEMATOCRIT 43.2 % (35.4-49); HEMOGLOBIN 13.8 GM/dL (11.7-16.9); MCH 28.7 pg (25.7-33.7); MEAN CELL VOLUME 89.7 fl (80-96); MEAN PLT VOLUME 7.1 fl (7.5-11.1); PLATELET COUNT 283 K/MM3 (134-434); RBC 4.81 M/mm3 (4.00-5.60); RDW 15.8 % (11.9-15.9); WHITE BLOOD COUNT 4.9 K/mm3 (4.0-10.0)
[2017-12-06] MEDS ORDERED: METHADONE 80 MG, METHADONE 10 MG PO ONE (10:15)
[2017-12-06 10:31] LABS: ALK PHOS 102 U/L (45-117); ANION GAP 3 MMOL/L (8-16); BILIRUBIN,TOTAL 0.4 mg/dL (0.2-1); BLOOD UREA NITROGEN 7 mg/dL (7-18); CALCIUM 8.9 mg/dL (8.5-10.1); CHLORIDE 107 mmol/L (98-107); CO2 29 mmol/L (21-32); CREATININE 0.7 mg/dL (0.55-1.3); GLUCOSE,RANDOM 90 mg/dL (74-106); POTASSIUM 3.8 mmol/L (3.5-5.1); SGOT/AST 12 U/L (15-37); SGPT/ALT 12 U/L (13-61); SODIUM 140 mmol/L (136-145); TOT PROT 6.9 g/dl (6.4-8.2)
[2017-12-06] MEDS ORDERED: METHADONE HCL 40 MG DISPERSABLE TABLET ONE (10:59)
[2017-12-06] MEDS: PRENATAL VITAMINS W/ FOLIC ACID TABLET (FP) PO SCH (10:59)
[2017-12-06] MEDS ORDERED: METHADONE HCL 10 MG TABLET ONE (10:59)
[2017-12-06] MEDS: NICOTINE 21 MG/24 HOURS TOPICAL PATCH TD SCH (11:00)
--- NOTE | 2017-12-06 11:10 | EKG ---
Test Reason : Blood Pressure : / mmHG Vent. Rate : 072 BPM Atrial Rate : 072 BPM P-R Int : 154 ms QRS Dur : 096 ms QT Int : 440 ms P-R-T Axes : 047 057 070 degrees QTc Int : 481 ms NORMAL SINUS RHYTHM MINIMAL VOLTAGE CRITERIA FOR LVH, MAY BE NORMAL VARIANT T WAVE ABNORMALITY, CONSIDER ANTERIOR ISCHEMIA PROLONGED QT ABNORMAL ECG WHEN COMPARED WITH ECG OF 15-APR-2016 20:28, T WAVE VARIATION Confirmed by JACOB MALONE, RISSA ([id number]) on 12/06/2017 11:10:35 AM Referred By: Dolores Larson Confirmed By:RISSA JAMES MD
--- NOTE | 2017-12-06 15:11 | PN ---
S CIWA - CIWA Score Nausea/Vomitin-Mild Nausea/No Vomiting Muscle Tremors: 4-Moderate,w/Arms Extend Anxiety: 3 Agitation: 3 Paroxysmal Sweats: 1-Minimal Palms Moist Orientation: 0-Oriented Tacttile Disturbances: 0-None Auditory Disturbances: 0-None Visual Disturbances: 0-None Headache: 0-None Present CIWA-Ar Total Score: 12 [facility] Progress Note (SOAP) Subjective: sweat tremor restlessness anxiety Objective: 12/06/17 15:20 Vital Signs Temperature 97.3 F L 12/06/17 13:05 Pulse Rate 73 12/06/17 13:05 Respiratory Rate 18 12/06/17 13:05 Blood Pressure 144/89 12/06/17 13:05 O2 Sat by Pulse Oximetry (%) Laboratory Last Values WBC 4.9 K/mm3 (4.0-10.0) 12/06/17 07:30 RBC 4.81 M/mm3 (4.00-5.60) 12/06/17 07:30 Hgb 13.8 GM/dL (11.7-16.9) 12/06/17 07:30 Hct 43.2 % (35.4-49) 12/06/17 07:30 MCV 89.7 fl (80-96) 12/06/17 07:30 MCH 28.7 pg (25.7-33.7) 12/06/17 07:30 MCHC 32.0 g/dl (32.0-35.9) 12/06/17 07:30 RDW 15.8 % (11.9-15.9) 12/06/17 07:30 Plt Count 283 K/MM3 (134-434) 12/06/17 07:30 MPV 7.1 fl (7.5-11.1) L 12/06/17 07:30 Sodium 140 mmol/L (136-145) 12/06/17 07:30 Potassium 3.8 mmol/L (3.5-5.1) 12/06/17 07:30 Chloride 107 mmol/L (98-107) 12/06/17 07:30 Carbon Dioxide 29 mmol/L (21-32) 12/06/17 07:30 Anion Gap 3 MMOL/L (8-16) L 12/06/17 07:30 BUN 7 mg/dL (7-18) 12/06/17 07:30 Creatinine 0.7 mg/dL (0.55-1.3) 12/06/17 07:30 Creat Clearance w eGFR > 60 (>60) 12/06/17 07:30 Random Glucose 90 mg/dL (74-106) 12/06/17 07:30 Calcium 8.9 mg/dL (8.5-10.1) 12/06/17 07:30 Total Bilirubin 0.4 mg/dL (0.2-1) 12/06/17 07:30 AST 12 U/L (15-37) L 12/06/17 07:30 ALT 12 U/L (13-61) L 12/06/17 07:30 Alkaline Phosphatase 102 U/L (45-117) 12/06/17 07:30 Total Protein 6.9 g/dl (6.4-8.2) 12/06/17 07:30 Albumin 3.0 g/dl (3.4-5.0) L 12/06/17 07:30 Urine Color Ltyellow 12/05/17 15:53 Urine Appearance Clear 12/05/17 15:53 Urine pH 6.0 (5.0-8.0) 12/05/17 15:53 Ur Specific [place] 1.003 (1.010-1.035) L 12/05/17 15:53 Urine Protein Negative (NEGATIVE) 12/05/17 15:53 Urine Glucose (UA) Negative (NEGATIVE) 12/05/17 15:53 Urine Ketones Negative (NEGATIVE) 12/05/17 15:53 Urine Blood Negative (NEGATIVE) 12/05/17 15:53 Urine Nitrite Negative (NEGATIVE) 12/05/17 15:53 Urine Bilirubin Negative (<2.0 mg/dL) 12/05/17 15:53 Urine Urobilinogen Negative mg/dL (0.2-1.0) 12/05/17 15:53 Ur Leukocyte Esterase Negative (NEGATIVE) 12/05/17 15:53 RPR Titer Nonreactive (NONREACTIVE) 12/06/17 07:30 lab noted Assessment: 12/06/17 15:22 withdrawal sx Plan: continue detox
[2017-12-06] MEDS: THIAMINE HCL 100 MG TABLET (FP) PO SCH (22:39)
[2017-12-06] MEDS: QUEtiapine FUMARATE 100 MG TABLET (FP) PO SCH (22:39)
[2017-12-07] MEDS ORDERED: METHADONE HCL 40 MG DISPERSABLE TABLET ONE (04:27)
[2017-12-07] MEDS ORDERED: METHADONE HCL 10 MG TABLET ONE (04:28)
[2017-12-07] MEDS: chlordiazePOXIDE HCL 25 MG CAPSULE PO SCH ×2 (06:00→10:55)
[2017-12-07] MEDS ORDERED: METHADONE HCL 40 MG DISPERSABLE TABLET PO SCH (06:00)
[2017-12-07] MEDS: NICOTINE 21 MG/24 HOURS TOPICAL PATCH TD SCH (10:48)
[2017-12-07] MEDS: PRENATAL VITAMINS W/ FOLIC ACID TABLET (FP) PO SCH (10:50)
[2017-12-07] MEDS: METHADONE 80 MG, METHADONE 10 MG PO SCH (10:50)
--- NOTE | 2017-12-07 12:16 | PN ---
[facility] CIWA - CIWA Score Nausea/Vomitin-No Nausea/No Vomiting Muscle Tremors: 3 Anxiety: 3 Agitation: 2 Paroxysmal Sweats: 2 Orientation: 0-Oriented Tacttile Disturbances: 1-Very Mild Itch/Numbness Auditory Disturbances: 0-None Visual Disturbances: 0-None Headache: 0-None Present CIWA-Ar Total Score: 11 S Progress Note (SOAP) Subjective: sweat tremor restlessness anxiety Objective: 12/07/17 12:21 Vital Signs Temperature 97.9 F 12/07/17 09:39 Pulse Rate 59 L 12/07/17 09:39 Respiratory Rate 16 12/07/17 09:39 Blood Pressure 138/75 12/07/17 09:39 O2 Sat by Pulse Oximetry (%) Laboratory Last Values WBC 4.9 K/mm3 (4.0-10.0) 12/06/17 07:30 RBC 4.81 M/mm3 (4.00-5.60) 12/06/17 07:30 Hgb 13.8 GM/dL (11.7-16.9) 12/06/17 07:30 Hct 43.2 % (35.4-49) 12/06/17 07:30 MCV 89.7 fl (80-96) 12/06/17 07:30 MCH 28.7 pg (25.7-33.7) 12/06/17 07:30 MCHC 32.0 g/dl (32.0-35.9) 12/06/17 07:30 RDW 15.8 % (11.9-15.9) 12/06/17 07:30 Plt Count 283 K/MM3 (134-434) 12/06/17 07:30 MPV 7.1 fl (7.5-11.1) L 12/06/17 07:30 Sodium 140 mmol/L (136-145) 12/06/17 07:30 Potassium 3.8 mmol/L (3.5-5.1) 12/06/17 07:30 Chloride 107 mmol/L (98-107) 12/06/17 07:30 Carbon Dioxide 29 mmol/L (21-32) 12/06/17 07:30 Anion Gap 3 MMOL/L (8-16) L 12/06/17 07:30 BUN 7 mg/dL (7-18) 12/06/17 07:30 Creatinine 0.7 mg/dL (0.55-1.3) 12/06/17 07:30 Creat Clearance w eGFR > 60 (>60) 12/06/17 07:30 Random Glucose 90 mg/dL (74-106) 12/06/17 07:30 Calcium 8.9 mg/dL (8.5-10.1) 12/06/17 07:30 Total Bilirubin 0.4 mg/dL (0.2-1) 12/06/17 07:30 AST 12 U/L (15-37) L 12/06/17 07:30 ALT 12 U/L (13-61) L 12/06/17 07:30 Alkaline Phosphatase 102 U/L (45-117) 12/06/17 07:30 Total Protein 6.9 g/dl (6.4-8.2) 12/06/17 07:30 Albumin 3.0 g/dl (3.4-5.0) L 12/06/17 07:30 Urine Color Ltyellow 12/05/17 15:53 Urine Appearance Clear 12/05/17 15:53 Urine pH 6.0 (5.0-8.0) 12/05/17 15:53 Ur Specific [place] 1.003 (1.010-1.035) L 12/05/17 15:53 Urine Protein Negative (NEGATIVE) 12/05/17 15:53 Urine Glucose (UA) Negative (NEGATIVE) 12/05/17 15:53 Urine Ketones Negative (NEGATIVE) 12/05/17 15:53 Urine Blood Negative (NEGATIVE) 12/05/17 15:53 Urine Nitrite Negative (NEGATIVE) 12/05/17 15:53 Urine Bilirubin Negative (<2.0 mg/dL) 12/05/17 15:53 Urine Urobilinogen Negative mg/dL (0.2-1.0) 12/05/17 15:53 Ur Leukocyte Esterase Negative (NEGATIVE) 12/05/17 15:53 RPR Titer Nonreactive (NONREACTIVE) 12/06/17 07:30 12/07/17 12:25 lab noted Assessment: 12/07/17 12:25 withdrawal sx Plan: continue detox
[2017-12-07] MEDS: chlordiazePOXIDE 5 MG CAPSULE PO SCH ×2 (18:07→22:25)
[2017-12-07] MEDS: QUEtiapine FUMARATE 100 MG TABLET (FP) PO SCH (22:25)
[2017-12-07] MEDS: THIAMINE HCL 100 MG TABLET (FP) PO SCH (22:25)
[2017-12-08] MEDS ORDERED: METHADONE HCL 40 MG DISPERSABLE TABLET ONE (04:28)
[2017-12-08] MEDS ORDERED: METHADONE HCL 10 MG TABLET ONE (04:29)
[2017-12-08] MEDS: METHADONE 80 MG, METHADONE 10 MG PO SCH (07:00)
[2017-12-08] MEDS: chlordiazePOXIDE 5 MG CAPSULE PO SCH ×2 (07:00→10:58)
[2017-12-08] MEDS: NICOTINE 21 MG/24 HOURS TOPICAL PATCH TD SCH (10:56)
[2017-12-08] MEDS: PRENATAL VITAMINS W/ FOLIC ACID TABLET (FP) PO SCH (10:57)
--- NOTE | 2017-12-08 13:22 | PN ---
[facility] Progress Note (SOAP) Subjective: feeling better mild muscle cramping no tremor less sweat Objective: 12/08/17 13:22 Vital Signs Temperature 98.6 F 12/08/17 10:14 Pulse Rate 58 L 12/08/17 10:14 Respiratory Rate 16 12/08/17 10:14 Blood Pressure 133/67 12/08/17 10:14 O2 Sat by Pulse Oximetry (%) Laboratory Last Values WBC 4.9 K/mm3 (4.0-10.0) 12/06/17 07:30 RBC 4.81 M/mm3 (4.00-5.60) 12/06/17 07:30 Hgb 13.8 GM/dL (11.7-16.9) 12/06/17 07:30 Hct 43.2 % (35.4-49) 12/06/17 07:30 MCV 89.7 fl (80-96) 12/06/17 07:30 MCH 28.7 pg (25.7-33.7) 12/06/17 07:30 MCHC 32.0 g/dl (32.0-35.9) 12/06/17 07:30 RDW 15.8 % (11.9-15.9) 12/06/17 07:30 Plt Count 283 K/MM3 (134-434) 12/06/17 07:30 MPV 7.1 fl (7.5-11.1) L 12/06/17 07:30 Sodium 140 mmol/L (136-145) 12/06/17 07:30 Potassium 3.8 mmol/L (3.5-5.1) 12/06/17 07:30 Chloride 107 mmol/L (98-107) 12/06/17 07:30 Carbon Dioxide 29 mmol/L (21-32) 12/06/17 07:30 Anion Gap 3 MMOL/L (8-16) L 12/06/17 07:30 BUN 7 mg/dL (7-18) 12/06/17 07:30 Creatinine 0.7 mg/dL (0.55-1.3) 12/06/17 07:30 Creat Clearance w eGFR > 60 (>60) 12/06/17 07:30 Random Glucose 90 mg/dL (74-106) 12/06/17 07:30 Calcium 8.9 mg/dL (8.5-10.1) 12/06/17 07:30 Total Bilirubin 0.4 mg/dL (0.2-1) 12/06/17 07:30 AST 12 U/L (15-37) L 12/06/17 07:30 ALT 12 U/L (13-61) L 12/06/17 07:30 Alkaline Phosphatase 102 U/L (45-117) 12/06/17 07:30 Total Protein 6.9 g/dl (6.4-8.2) 12/06/17 07:30 Albumin 3.0 g/dl (3.4-5.0) L 12/06/17 07:30 Urine Color Ltyellow 12/05/17 15:53 Urine Appearance Clear 12/05/17 15:53 Urine pH 6.0 (5.0-8.0) 12/05/17 15:53 Ur Specific [place] 1.003 (1.010-1.035) L 12/05/17 15:53 Urine Protein Negative (NEGATIVE) 12/05/17 15:53 Urine Glucose (UA) Negative (NEGATIVE) 12/05/17 15:53 Urine Ketones Negative (NEGATIVE) 12/05/17 15:53 Urine Blood Negative (NEGATIVE) 12/05/17 15:53 Urine Nitrite Negative (NEGATIVE) 12/05/17 15:53 Urine Bilirubin Negative (<2.0 mg/dL) 12/05/17 15:53 Urine Urobilinogen Negative mg/dL (0.2-1.0) 12/05/17 15:53 Ur Leukocyte Esterase Negative (NEGATIVE) 12/05/17 15:53 RPR Titer Nonreactive (NONREACTIVE) 12/06/17 07:30 lab noted Assessment: 12/08/17 13:22 midl withdrawal sx Plan: medically supervised detox
[2017-12-08] MEDS ORDERED: BACLOFEN 10 MG TABLET (FP) PO ONE (14:00)
[2017-12-08] MEDS: chlordiazePOXIDE HCL 10 MG CAPSULE PO SCH ×2 (17:32→22:25)
[2017-12-08] MEDS: QUEtiapine FUMARATE 100 MG TABLET (FP) PO SCH (22:25)
[2017-12-08] MEDS: THIAMINE HCL 100 MG TABLET (FP) PO SCH (22:25)
[2017-12-09] MEDS ORDERED: METHADONE HCL 10 MG TABLET ONE (04:13)
[2017-12-09] MEDS ORDERED: METHADONE HCL 40 MG DISPERSABLE TABLET ONE (04:13)
[2017-12-09] MEDS: METHADONE 80 MG, METHADONE 10 MG PO SCH (06:19)
[2017-12-09] MEDS: chlordiazePOXIDE HCL 10 MG CAPSULE PO SCH ×2 (06:21→10:16)
--- NOTE | 2017-12-09 09:58 | DS ---
[facility] Detox Discharge Summary Admission Date: 12/05/17 Discharge Date: 12/09/17 - History Present History: Alcohol Dependence Additional Comments: 57 years old male admitted on 12/05/17 for alcohol withdrawal sx completed alcohol detox regimen tolerated well denies alcohol withdrawal sx alert oriented x 3 no acute distress aftercare [facility] - Physical Exam Results Vital Signs: Vital Signs Temperature 99 F 12/09/17 07:52 Pulse Rate 77 12/09/17 07:52 Respiratory Rate 18 12/09/17 07:52 Blood Pressure 112/64 12/09/17 07:52 O2 Sat by Pulse Oximetry (%) Pertinent Admission Physical Exam Findings: alcohol withdrawal sx Vital Signs Temperature 99 F 12/09/17 07:52 Pulse Rate 77 12/09/17 07:52 Respiratory Rate 18 12/09/17 07:52 Blood Pressure 112/64 12/09/17 07:52 O2 Sat by Pulse Oximetry (%) Laboratory Last Values WBC 4.9 K/mm3 (4.0-10.0) 12/06/17 07:30 RBC 4.81 M/mm3 (4.00-5.60) 12/06/17 07:30 Hgb 13.8 GM/dL (11.7-16.9) 12/06/17 07:30 Hct 43.2 % (35.4-49) 12/06/17 07:30 MCV 89.7 fl (80-96) 12/06/17 07:30 MCH 28.7 pg (25.7-33.7) 12/06/17 07:30 MCHC 32.0 g/dl (32.0-35.9) 12/06/17 07:30 RDW 15.8 % (11.9-15.9) 12/06/17 07:30 Plt Count 283 K/MM3 (134-434) 12/06/17 07:30 MPV 7.1 fl (7.5-11.1) L 12/06/17 07:30 Sodium 140 mmol/L (136-145) 12/06/17 07:30 Potassium 3.8 mmol/L (3.5-5.1) 12/06/17 07:30 Chloride 107 mmol/L (98-107) 12/06/17 07:30 Carbon Dioxide 29 mmol/L (21-32) 12/06/17 07:30 Anion Gap 3 MMOL/L (8-16) L 12/06/17 07:30 BUN 7 mg/dL (7-18) 12/06/17 07:30 Creatinine 0.7 mg/dL (0.55-1.3) 12/06/17 07:30 Creat Clearance w eGFR > 60 (>60) 12/06/17 07:30 Random Glucose 90 mg/dL (74-106) 12/06/17 07:30 Calcium 8.9 mg/dL (8.5-10.1) 12/06/17 07:30 Total Bilirubin 0.4 mg/dL (0.2-1) 12/06/17 07:30 AST 12 U/L (15-37) L 12/06/17 07:30 ALT 12 U/L (13-61) L 12/06/17 07:30 Alkaline Phosphatase 102 U/L (45-117) 12/06/17 07:30 Total Protein 6.9 g/dl (6.4-8.2) 12/06/17 07:30 Albumin 3.0 g/dl (3.4-5.0) L 12/06/17 07:30 Urine Color Ltyellow 12/05/17 15:53 Urine Appearance Clear 12/05/17 15:53 Urine pH 6.0 (5.0-8.0) 12/05/17 15:53 Ur Specific [place] 1.003 (1.010-1.035) L 12/05/17 15:53 Urine Protein Negative (NEGATIVE) 12/05/17 15:53 Urine Glucose (UA) Negative (NEGATIVE) 12/05/17 15:53 Urine Ketones Negative (NEGATIVE) 12/05/17 15:53 Urine Blood Negative (NEGATIVE) 12/05/17 15:53 Urine Nitrite Negative (NEGATIVE) 12/05/17 15:53 Urine Bilirubin Negative (<2.0 mg/dL) 12/05/17 15:53 Urine Urobilinogen Negative mg/dL (0.2-1.0) 12/05/17 15:53 Ur Leukocyte Esterase Negative (NEGATIVE) 12/05/17 15:53 RPR Titer Nonreactive (NONREACTIVE) 12/06/17 07:30 lab noted - Treatment Hospital Course: Detox Protocol Followed, Detoxed Safely, Responded well, Discharged Condition Good, Rehab Referral Accepted Patient has Accepted a Rehab Referral to: [facility] - Medication Discharge Medications: Ambulatory Orders Naproxen [Naprosyn -] 500 mg PO BID PRN #20 tablet 04/20/16 Ranitidine [Zantac -] 150 mg PO BID #60 tablet 04/20/16 Quetiapine Fumarate [Seroquel] 100 mg PO HS #30 tablet 12/06/17 Albuterol Sulfate Inhaler - [Ventolin HFA Inhaler -] 2 inh IH Q4H PRN #1 inhaler 12/08/17 Budesonide/Formeterol Fumarate [SYMBICORT 80/4.5mcg -] 2 puff IH BID #1 inhaler 12/08/17 - Diagnosis (1) Methadone maintenance therapy patient Current Visit: Yes Status: Chronic (2) Use of cane as ambulatory aid Current Visit: Yes Status: Chronic (3) Alcohol dependence with uncomplicated withdrawal Current Visit: Yes Status: Acute (4) Asthma Current Visit: Yes Status: Chronic Qualifiers: Asthma severity: mild Asthma persistence: intermittent Asthma complication type: with status asthmaticus Qualified Code(s): J45.22 - Mild intermittent asthma with status asthmaticus (5) GERD (gastroesophageal reflux disease) Current Visit: Yes Status: Chronic Qualifiers: Esophagitis presence: without esophagitis Qualified Code(s): K21.9 - Gastro -esophageal reflux disease without esophagitis (6) Glaucoma Current Visit: Yes Status: Chronic Qualifiers: Glaucoma type: unspecified Laterality: bilateral Qualified Code(s): H40.9 - Unspecified glaucoma (7) Nicotine dependence Current Visit: Yes Status: Acute Qualifiers: Nicotine product type: cigarettes Substance use status: in withdrawal Qualified Code(s): F17.213 - Nicotine dependence, cigarettes, with withdrawal (8) Weight loss Current Visit: Yes Status: Acute (9) Hep C w/o coma, chronic Current Visit: No Status: Chronic (10) Bipolar I disorder, most recent episode depressed Current Visit: Yes Status: Suspected - AMA Did Patient Leave Against Medical Advice: No
[2017-12-09] MEDS: PRENATAL VITAMINS W/ FOLIC ACID TABLET (FP) PO SCH (10:16)
[2017-12-09] MEDS: NICOTINE 21 MG/24 HOURS TOPICAL PATCH TD SCH (10:16)
[2017-12-09 10:51] VITALS: BP 92/63; PULSE 78; TEMP 98.1
== END 2017-12-09 10:51 | disposition other institution (70) | DRG 897 ==
LOC: YASAS 10:41 → Y6N 12:06
PROC: HZ2ZZZZ Detoxification Services for Substance Abuse Treatment (ICD-10-PCS; principal; 2017-12-05)
DX: F10.230 Alcohol dependence with withdrawal, uncomplicated (principal); F11.20 Opioid dependence, uncomplicated; F31.81 Bipolar II disorder; F33.9 Major depressive disorder, recurrent, unspecified; J45.22 Mild intermittent asthma with status asthmaticus; F17.213 Nicotine dependence, cigarettes, with withdrawal; F39 Unspecified mood [affective] disorder; K21.9 Gastro-esophageal reflux disease without esophagitis; H40.9 Unspecified glaucoma; B18.2 Chronic viral hepatitis C; R26.2 Difficulty in walking, not elsewhere classified; Z99.89 Dependence on other enabling machines and devices; Z87.898 Personal history of other specified conditions
CPT/HCPCS: 36415; 80053; 81003; 85027; 86593; 93005; 93010; J0475

== ENCOUNTER 2017-12-09 11:06 | Inpatient (IN) | payer OTHER ==
--- NOTE | 2017-12-09 10:02 | HP ---
[facility] Rehab Assess/Revision - Admission History Admitted to Rehab from: [facility] [place] Date of Admission to Rehab: 12/09/17 - Findings Detox History & Physical reviewed: Yes Concur with findings: Yes Comments/Additional Findings: transferred from detox to rehab admission as per protocol Inpatient Rehab Admission - Initial Determination Are CD services needed?: Yes Free of communicable disease: Yes Not in need of hospitalization: Yes - Rehab Admission Criteria Previous failed treatment: Yes Poor recovery environment: Yes Comorbidities: Yes Lacks judgement: No Patient is meeting Inpatient Rehab admission criteria:: Yes
[2017-12-09 12:22] VITALS: BMI 23.0
[2017-12-09] MEDS ORDERED: MAGNESIUM HYDROX 2400MG/30ML ORAL SUSPENSION 30 ML CUP PO PRN (13:27)
[2017-12-09] MEDS ORDERED: guaiFENesin/D-METHORPHAN HB 10 ML UNIT-DOSE CUPS PO PRN (13:27)
[2017-12-09] MEDS ORDERED: LOPERAMIDE HCL 2 MG CAPSULE PO PRN (13:27)
[2017-12-09] MEDS ORDERED: NICOTINE POLACRILEX 2 MG GUM BUC PRN (13:27)
[2017-12-09] MEDS ORDERED: MENTHOL/PHENOL 1 EACH UD MM PRN (13:27)
[2017-12-09] MEDS ORDERED: MAGNESIUM CITRATE 300 ML BOTTLE PO PRN (13:27)
[2017-12-09] MEDS ORDERED: IBUPROFEN 400 MG TABLET (FP) PO PRN (13:27)
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
[2017-12-09] MEDS: THIAMINE HCL 100 MG TABLET (FP) PO SCH (22:12)
[2017-12-09] MEDS: RANITIDINE HCL 150 MG TABLET (FP) PO SCH (22:12)
[2017-12-09] MEDS: MELATONIN 5 MG TABLETS PO PRN (22:13)
[2017-12-09] MEDS: BUDESONIDE/FORMETEROL FUMARATE 80/4.5 mcg INHALER IH SCH (22:15)
[2017-12-10] MEDS ORDERED: METHADONE HCL 40 MG DISPERSABLE TABLET PO SCH (06:00)
[2017-12-10] MEDS ORDERED: METHADONE HCL 10 MG TABLET ONE (06:26)
[2017-12-10] MEDS ORDERED: METHADONE HCL 40 MG DISPERSABLE TABLET ONE (06:26)
[2017-12-10] MEDS: METHADONE 80 MG, METHADONE 10 MG PO SCH (06:52)
[2017-12-10] MEDS: PRENATAL VITAMINS W/ FOLIC ACID TABLET (FP) PO SCH (09:52)
[2017-12-10] MEDS: RANITIDINE HCL 150 MG TABLET (FP) PO SCH ×2 (09:52→21:27)
[2017-12-10] MEDS: NICOTINE 14 MG/24 HOURS TOPICAL PATCH TD SCH (09:52)
[2017-12-10] MEDS: BUDESONIDE/FORMETEROL FUMARATE 80/4.5 mcg INHALER IH SCH ×2 (09:55→21:26)
[2017-12-10] MEDS: ALBUTEROL SO4 8 GM HFA INHALER IH PRN (09:56)
[2017-12-10] MEDS ORDERED: FLU VACCINE QUAD 60 MCG/0.5 ML (MDV 18-19) IM ONE (12:00)
--- NOTE | 2017-12-10 15:12 | PN ---
[facility] Progress Note Note: PT C/O TEETH/GUM PAIN AND UNABLE TO EAT COMFORTABLY. REPORTS HE HAS DENTAL PROBLEM FOR YEARS BUT HAS NOT BEEN ABLE TO ADDRESS IT DUE TO HOMELESSNESS AND DRUG USE. PT ALSO C/O LOWER BACK PAIN AND RIGHT KNEE PAIN- HX OF KNEE SURGERY. PT REPORTS HE DOES NOT HAVE A PMD/DENTIST AND HAS NOT FOLLOW UP WITH DENTAL HEALTH. PT IS IN [facility]INTE[facility]CE PROGRAM. Vital Signs - 24 hr 12/10/17 12/10/17 12/10/17 00:30 03:30 07:23 Temperature 97.5 F L Pulse Rate 75 Respiratory 18 18 18 Rate Blood Pressure 124/79 ORAL EXAM: DROOLING. GUM AREAS RED AND SLIGHTLY SWOLLEN. TEETH IN POOR REPAIR WITH ABNORMALLY INCOMPLETE ERUPTION PATTERN OR EROSION OF TOOTH ENAMEL. MOSTLY WITH NO TEETH THROUGHOUT MOUTH. IMPRESSION:GINGIVITIS PLAN:AMOXICILLIN 500 PO TID LIDOCAINE SWISH DIRECTED. LIDOCAINE PATCH DIRECTED BACLOFEN 10 MG PO TID PRN INCREASE PO FLUIDS FOLLOW UP FOR DENTAL CARE/PRIMARY CARE AFTER REHAB.
[2017-12-10] MEDS ORDERED: AMOXICILLIN 500 MG CAPSULE (FP) PO ONE (15:20)
[2017-12-10] MEDS ORDERED: LIDOCAINE VISCOUS 2% ORAL/TOP 20 ML UNIT-DOSE CUP MM PRN (15:25)
[2017-12-10] MEDS: LIDOCAINE 5% TOPICAL PATCH TP SCH (16:13)
[2017-12-10] MEDS: THIAMINE HCL 100 MG TABLET (FP) PO SCH (21:26)
[2017-12-10] MEDS: AMOXICILLIN 500 MG CAPSULE (FP) PO SCH (21:26)
[2017-12-10] MEDS: LIDOCAINE PATCH REMOVAL MC SCH (21:26)
[2017-12-10] MEDS: QUEtiapine FUMARATE 100 MG TABLET (FP) PO SCH (21:26)
[2017-12-10] MEDS: ACETAMINOPHEN 325 MG TABLET (FP) PO PRN (21:28)
[2017-12-11] MEDS ORDERED: METHADONE HCL 10 MG TABLET ONE (03:07)
[2017-12-11] MEDS ORDERED: METHADONE HCL 40 MG DISPERSABLE TABLET ONE (03:07)
[2017-12-11] MEDS: AMOXICILLIN 500 MG CAPSULE (FP) PO SCH ×3 (06:42→21:35)
[2017-12-11] MEDS: METHADONE 80 MG, METHADONE 10 MG PO SCH (06:43)
[2017-12-11] MEDS: BUDESONIDE/FORMETEROL FUMARATE 80/4.5 mcg INHALER IH SCH ×2 (10:18→21:35)
[2017-12-11] MEDS: PRENATAL VITAMINS W/ FOLIC ACID TABLET (FP) PO SCH (10:19)
[2017-12-11] MEDS: RANITIDINE HCL 150 MG TABLET (FP) PO SCH ×2 (10:19→21:35)
[2017-12-11] MEDS: NICOTINE 14 MG/24 HOURS TOPICAL PATCH TD SCH (10:19)
[2017-12-11] MEDS: LIDOCAINE 5% TOPICAL PATCH TP SCH (10:19)
--- NOTE | 2017-12-11 11:45 | PN ---
S Progress Note Note: TC from nurse Brittnee, patient with white tongue - patient states he has had thrush before and wishes nystatin. No difficulty swallowing. will Rx same.
[2017-12-11] MEDS: NYSTATIN 500,000 UNITS/5 ML SUSPENSION PO SCH ×2 (14:00→17:13)
[2017-12-11] MEDS: ACETAMINOPHEN 325 MG TABLET (FP) PO PRN (17:38)
[2017-12-11] MEDS: MELATONIN 5 MG TABLETS PO PRN (21:35)
[2017-12-11] MEDS: QUEtiapine FUMARATE 100 MG TABLET (FP) PO SCH (21:35)
[2017-12-11] MEDS: LIDOCAINE PATCH REMOVAL MC SCH (21:37)
[2017-12-11] MEDS: diphenhydrAMINE HCL 50 MG CAPSULE PO PRN (21:37)
[2017-12-11] MEDS: THIAMINE HCL 100 MG TABLET (FP) PO SCH (21:38)
[2017-12-12] MEDS: NYSTATIN 500,000 UNITS/5 ML SUSPENSION PO SCH ×4 (00:50→18:33)
[2017-12-12] MEDS ORDERED: METHADONE HCL 10 MG TABLET ONE (05:27)
[2017-12-12] MEDS ORDERED: METHADONE HCL 40 MG DISPERSABLE TABLET ONE (05:27)
[2017-12-12] MEDS: AMOXICILLIN 500 MG CAPSULE (FP) PO SCH ×3 (06:59→22:54)
[2017-12-12] MEDS: METHADONE 80 MG, METHADONE 10 MG PO SCH (06:59)
[2017-12-12] MEDS: PRENATAL VITAMINS W/ FOLIC ACID TABLET (FP) PO SCH (10:33)
[2017-12-12] MEDS: NICOTINE 14 MG/24 HOURS TOPICAL PATCH TD SCH (10:33)
[2017-12-12] MEDS: BUDESONIDE/FORMETEROL FUMARATE 80/4.5 mcg INHALER IH SCH ×2 (10:33→22:54)
[2017-12-12] MEDS: RANITIDINE HCL 150 MG TABLET (FP) PO SCH ×2 (10:33→23:51)
[2017-12-12] MEDS: LIDOCAINE 5% TOPICAL PATCH TP SCH (10:33)
[2017-12-12] MEDS: ALBUTEROL SO4 8 GM HFA INHALER IH PRN (10:34)
[2017-12-12] MEDS: BACLOFEN 10 MG TABLET (FP) PO PRN (18:37)
[2017-12-12] MEDS: QUEtiapine FUMARATE 100 MG TABLET (FP) PO SCH (22:54)
[2017-12-12] MEDS: THIAMINE HCL 100 MG TABLET (FP) PO SCH (22:54)
[2017-12-12] MEDS: diphenhydrAMINE HCL 50 MG CAPSULE PO PRN (22:56)
[2017-12-12] MEDS: LIDOCAINE PATCH REMOVAL MC SCH (22:57)
[2017-12-13] MEDS: NYSTATIN 500,000 UNITS/5 ML SUSPENSION PO SCH ×4 (00:30→17:39)
[2017-12-13] MEDS ORDERED: METHADONE HCL 40 MG DISPERSABLE TABLET ONE (03:12)
[2017-12-13] MEDS ORDERED: METHADONE HCL 10 MG TABLET ONE (03:12)
[2017-12-13] MEDS: AMOXICILLIN 500 MG CAPSULE (FP) PO SCH ×3 (06:23→21:58)
[2017-12-13] MEDS: METHADONE 80 MG, METHADONE 10 MG PO SCH (06:23)
[2017-12-13] MEDS: LIDOCAINE 5% TOPICAL PATCH TP SCH (10:41)
[2017-12-13] MEDS: BUDESONIDE/FORMETEROL FUMARATE 80/4.5 mcg INHALER IH SCH ×2 (10:42→21:59)
[2017-12-13] MEDS: RANITIDINE HCL 150 MG TABLET (FP) PO SCH ×2 (10:42→21:58)
[2017-12-13] MEDS: PRENATAL VITAMINS W/ FOLIC ACID TABLET (FP) PO SCH (10:42)
[2017-12-13] MEDS: NICOTINE 14 MG/24 HOURS TOPICAL PATCH TD SCH (10:42)
[2017-12-13] MEDS ORDERED: PT OWN MED DRAWER 7, Y5N ONE (11:57)
[2017-12-13] MEDS: QUEtiapine FUMARATE 100 MG TABLET (FP) PO SCH (21:58)
[2017-12-13] MEDS: THIAMINE HCL 100 MG TABLET (FP) PO SCH (21:58)
[2017-12-13] MEDS: LIDOCAINE PATCH REMOVAL MC SCH (21:59)
[2017-12-13] MEDS: diphenhydrAMINE HCL 50 MG CAPSULE PO PRN (21:59)
[2017-12-14] MEDS: NYSTATIN 500,000 UNITS/5 ML SUSPENSION PO SCH ×5 (01:24→23:31)
[2017-12-14] MEDS ORDERED: METHADONE HCL 10 MG TABLET ONE (03:13)
[2017-12-14] MEDS ORDERED: METHADONE HCL 40 MG DISPERSABLE TABLET ONE (03:13)
[2017-12-14] MEDS: METHADONE 80 MG, METHADONE 10 MG PO SCH (06:45)
[2017-12-14] MEDS: AMOXICILLIN 500 MG CAPSULE (FP) PO SCH ×3 (06:45→22:07)
[2017-12-14] MEDS: NICOTINE 14 MG/24 HOURS TOPICAL PATCH TD SCH (10:24)
[2017-12-14] MEDS: RANITIDINE HCL 150 MG TABLET (FP) PO SCH (10:24)
[2017-12-14] MEDS: LIDOCAINE 5% TOPICAL PATCH TP SCH (10:25)
[2017-12-14] MEDS: BUDESONIDE/FORMETEROL FUMARATE 80/4.5 mcg INHALER IH SCH ×2 (10:26→22:09)
[2017-12-14] MEDS: PRENATAL VITAMINS W/ FOLIC ACID TABLET (FP) PO SCH (10:26)
[2017-12-14] MEDS ORDERED: PT OWN MED DRAWER 7, Y5N ONE ×2 (13:07→16:31)
[2017-12-14] MEDS: THIAMINE HCL 100 MG TABLET (FP) PO SCH (22:07)
[2017-12-14] MEDS: MELATONIN 5 MG TABLETS PO PRN (22:07)
[2017-12-14] MEDS: QUEtiapine FUMARATE 100 MG TABLET (FP) PO SCH (22:07)
[2017-12-14] MEDS: diphenhydrAMINE HCL 50 MG CAPSULE PO PRN (22:08)
[2017-12-14] MEDS: LIDOCAINE PATCH REMOVAL MC SCH (22:09)
[2017-12-15] MEDS ORDERED: METHADONE HCL 40 MG DISPERSABLE TABLET ONE (05:35)
[2017-12-15] MEDS ORDERED: METHADONE HCL 10 MG TABLET ONE (05:35)
[2017-12-15] MEDS ORDERED: METHADONE HCL 40 MG DISPERSABLE TABLET PO SCH ×2 (06:00)
[2017-12-15] MEDS: NYSTATIN 500,000 UNITS/5 ML SUSPENSION PO SCH ×4 (06:43→23:44)
[2017-12-15] MEDS: AMOXICILLIN 500 MG CAPSULE (FP) PO SCH ×3 (06:43→21:39)
[2017-12-15] MEDS: METHADONE 80 MG, METHADONE 10 MG PO SCH (06:44)
[2017-12-15] MEDS: NICOTINE 14 MG/24 HOURS TOPICAL PATCH TD SCH (09:00)
[2017-12-15] MEDS: BUDESONIDE/FORMETEROL FUMARATE 80/4.5 mcg INHALER IH SCH ×2 (09:00→21:39)
[2017-12-15] MEDS: LIDOCAINE 5% TOPICAL PATCH TP SCH (09:59)
[2017-12-15] MEDS: PRENATAL VITAMINS W/ FOLIC ACID TABLET (FP) PO SCH (09:59)
[2017-12-15] MEDS ORDERED: PT OWN MED DRAWER 7, Y5N ONE ×3 (13:04→23:42)
[2017-12-15] MEDS: THIAMINE HCL 100 MG TABLET (FP) PO SCH (21:39)
[2017-12-15] MEDS: LIDOCAINE PATCH REMOVAL MC SCH (21:39)
[2017-12-15] MEDS: QUEtiapine FUMARATE 100 MG TABLET (FP) PO SCH (21:39)
[2017-12-15] MEDS: diphenhydrAMINE HCL 50 MG CAPSULE PO PRN (21:40)
[2017-12-15] MEDS: P-EPHED 60MG/TRIPROLIDI 2.5MG TABLET PO PRN (23:44)
[2017-12-16] MEDS: MELATONIN 5 MG TABLETS PO PRN ×2 (01:49→21:59)
[2017-12-16] MEDS ORDERED: METHADONE HCL 10 MG TABLET ONE (05:37)
[2017-12-16] MEDS ORDERED: METHADONE HCL 40 MG DISPERSABLE TABLET ONE (05:38)
[2017-12-16] MEDS: METHADONE 80 MG, METHADONE 10 MG PO SCH (06:41)
[2017-12-16] MEDS: AMOXICILLIN 500 MG CAPSULE (FP) PO SCH ×3 (06:42→21:59)
[2017-12-16] MEDS: NYSTATIN 500,000 UNITS/5 ML SUSPENSION PO SCH ×4 (06:42→23:56)
[2017-12-16] MEDS: PRENATAL VITAMINS W/ FOLIC ACID TABLET (FP) PO SCH (10:53)
[2017-12-16] MEDS: BUDESONIDE/FORMETEROL FUMARATE 80/4.5 mcg INHALER IH SCH ×2 (10:53→22:00)
[2017-12-16] MEDS: NICOTINE 14 MG/24 HOURS TOPICAL PATCH TD SCH (10:53)
[2017-12-16] MEDS: LIDOCAINE 5% TOPICAL PATCH TP SCH (10:53)
[2017-12-16] MEDS ORDERED: PT OWN MED DRAWER 7, Y5N ONE ×3 (12:44→16:36)
[2017-12-16] MEDS: QUEtiapine FUMARATE 100 MG TABLET (FP) PO SCH (21:59)
[2017-12-16] MEDS: THIAMINE HCL 100 MG TABLET (FP) PO SCH (21:59)
[2017-12-16] MEDS: LIDOCAINE PATCH REMOVAL MC SCH (22:00)
[2017-12-17] MEDS: diphenhydrAMINE HCL 50 MG CAPSULE PO PRN ×2 (00:43→21:46)
[2017-12-17] MEDS ORDERED: METHADONE HCL 10 MG TABLET ONE (05:34)
[2017-12-17] MEDS ORDERED: METHADONE HCL 40 MG DISPERSABLE TABLET ONE (05:34)
[2017-12-17] MEDS: NYSTATIN 500,000 UNITS/5 ML SUSPENSION PO SCH ×4 (06:06→23:46)
[2017-12-17] MEDS: AMOXICILLIN 500 MG CAPSULE (FP) PO SCH ×2 (06:07→14:17)
[2017-12-17] MEDS: METHADONE 80 MG, METHADONE 10 MG PO SCH (06:07)
[2017-12-17] MEDS: LIDOCAINE 5% TOPICAL PATCH TP SCH (10:10)
[2017-12-17] MEDS: NICOTINE 14 MG/24 HOURS TOPICAL PATCH TD SCH (10:10)
[2017-12-17] MEDS: PRENATAL VITAMINS W/ FOLIC ACID TABLET (FP) PO SCH (10:10)
[2017-12-17] MEDS: BUDESONIDE/FORMETEROL FUMARATE 80/4.5 mcg INHALER IH SCH ×2 (10:11→21:46)
[2017-12-17] MEDS ORDERED: PT OWN MED DRAWER 7, Y5N ONE ×2 (14:03→16:40)
[2017-12-17] MEDS: MELATONIN 5 MG TABLETS PO PRN (21:44)
[2017-12-17] MEDS: QUEtiapine FUMARATE 100 MG TABLET (FP) PO SCH (21:44)
[2017-12-17] MEDS: THIAMINE HCL 100 MG TABLET (FP) PO SCH (21:44)
[2017-12-17] MEDS: LIDOCAINE PATCH REMOVAL MC SCH (21:45)
[2017-12-18] MEDS ORDERED: METHADONE HCL 10 MG TABLET ONE (03:22)
[2017-12-18] MEDS ORDERED: METHADONE HCL 40 MG DISPERSABLE TABLET ONE (03:23)
[2017-12-18] MEDS ORDERED: PT OWN MED DRAWER 7, Y5N ONE (03:23)
[2017-12-18] MEDS: METHADONE 80 MG, METHADONE 10 MG PO SCH (06:29)
[2017-12-18] MEDS: NYSTATIN 500,000 UNITS/5 ML SUSPENSION PO SCH ×4 (06:29→23:04)
[2017-12-18] MEDS: LIDOCAINE 5% TOPICAL PATCH TP SCH (10:14)
[2017-12-18] MEDS: NICOTINE 14 MG/24 HOURS TOPICAL PATCH TD SCH (10:14)
[2017-12-18] MEDS: BUDESONIDE/FORMETEROL FUMARATE 80/4.5 mcg INHALER IH SCH ×2 (10:14→22:26)
[2017-12-18] MEDS: PRENATAL VITAMINS W/ FOLIC ACID TABLET (FP) PO SCH (10:14)
[2017-12-18] MEDS: P-EPHED 60MG/TRIPROLIDI 2.5MG TABLET PO PRN (15:32)
[2017-12-18] MEDS: QUEtiapine FUMARATE 100 MG TABLET (FP) PO SCH (22:26)
[2017-12-18] MEDS: THIAMINE HCL 100 MG TABLET (FP) PO SCH (22:26)
[2017-12-18] MEDS: LIDOCAINE PATCH REMOVAL MC SCH (22:26)
[2017-12-18] MEDS: diphenhydrAMINE HCL 50 MG CAPSULE PO PRN (22:28)
[2017-12-19] MEDS ORDERED: METHADONE HCL 10 MG TABLET ONE (02:44)
[2017-12-19] MEDS ORDERED: METHADONE HCL 40 MG DISPERSABLE TABLET ONE (02:44)
[2017-12-19] MEDS ORDERED: PT OWN MED DRAWER 7, Y5N ONE (02:45)
[2017-12-19] MEDS: NYSTATIN 500,000 UNITS/5 ML SUSPENSION PO SCH ×4 (06:58→23:02)
[2017-12-19] MEDS: METHADONE 80 MG, METHADONE 10 MG PO SCH (06:59)
[2017-12-19] MEDS: LIDOCAINE 5% TOPICAL PATCH TP SCH (09:59)
[2017-12-19] MEDS: NICOTINE 14 MG/24 HOURS TOPICAL PATCH TD SCH (10:00)
[2017-12-19] MEDS: PRENATAL VITAMINS W/ FOLIC ACID TABLET (FP) PO SCH (10:00)
[2017-12-19] MEDS: BUDESONIDE/FORMETEROL FUMARATE 80/4.5 mcg INHALER IH SCH ×2 (10:00→21:44)
[2017-12-19] MEDS: LIDOCAINE PATCH REMOVAL MC SCH (21:44)
[2017-12-19] MEDS: QUEtiapine FUMARATE 100 MG TABLET (FP) PO SCH (21:44)
[2017-12-19] MEDS: diphenhydrAMINE HCL 50 MG CAPSULE PO PRN (21:44)
[2017-12-19] MEDS: THIAMINE HCL 100 MG TABLET (FP) PO SCH (21:45)
[2017-12-19] MEDS: BACLOFEN 10 MG TABLET (FP) PO PRN (21:46)
[2017-12-20] MEDS ORDERED: METHADONE HCL 10 MG TABLET ONE (05:17)
[2017-12-20] MEDS ORDERED: METHADONE HCL 40 MG DISPERSABLE TABLET ONE (05:17)
[2017-12-20] MEDS: METHADONE 80 MG, METHADONE 10 MG PO SCH (06:38)
[2017-12-20] MEDS: NYSTATIN 500,000 UNITS/5 ML SUSPENSION PO SCH ×3 (06:39→17:07)
[2017-12-20] MEDS: LIDOCAINE 5% TOPICAL PATCH TP SCH (10:49)
[2017-12-20] MEDS: NICOTINE 14 MG/24 HOURS TOPICAL PATCH TD SCH (10:50)
[2017-12-20] MEDS: PRENATAL VITAMINS W/ FOLIC ACID TABLET (FP) PO SCH (10:50)
[2017-12-20] MEDS: BUDESONIDE/FORMETEROL FUMARATE 80/4.5 mcg INHALER IH SCH ×2 (10:52→21:59)
[2017-12-20] MEDS ORDERED: PT OWN MED DRAWER 7, Y5N ONE (16:31)
[2017-12-20] MEDS: MELATONIN 5 MG TABLETS PO PRN (21:58)
[2017-12-20] MEDS: QUEtiapine FUMARATE 100 MG TABLET (FP) PO SCH (21:59)
[2017-12-20] MEDS: LIDOCAINE PATCH REMOVAL MC SCH (21:59)
[2017-12-20] MEDS: diphenhydrAMINE HCL 50 MG CAPSULE PO PRN (21:59)
[2017-12-20] MEDS: THIAMINE HCL 100 MG TABLET (FP) PO SCH (22:00)
[2017-12-21] MEDS: NYSTATIN 500,000 UNITS/5 ML SUSPENSION PO SCH ×5 (00:06→23:19)
[2017-12-21] MEDS ORDERED: METHADONE HCL 40 MG DISPERSABLE TABLET ONE (05:51)
[2017-12-21] MEDS ORDERED: METHADONE HCL 10 MG TABLET ONE (05:51)
[2017-12-21] MEDS ORDERED: METHADONE HCL 10 MG TABLET PO SCH (06:00)
[2017-12-21] MEDS: METHADONE 80 MG, METHADONE 10 MG PO SCH (06:06)
[2017-12-21] MEDS: BUDESONIDE/FORMETEROL FUMARATE 80/4.5 mcg INHALER IH SCH ×2 (10:39→21:51)
[2017-12-21] MEDS: NICOTINE 14 MG/24 HOURS TOPICAL PATCH TD SCH (10:39)
[2017-12-21] MEDS: PRENATAL VITAMINS W/ FOLIC ACID TABLET (FP) PO SCH (10:39)
[2017-12-21] MEDS: LIDOCAINE 5% TOPICAL PATCH TP SCH (10:40)
[2017-12-21] MEDS: TOLNAFTATE 1% CREAM 15 GM TUBE TP SCH ×2 (10:40→21:51)
[2017-12-21] MEDS: ALBUTEROL SO4 8 GM HFA INHALER IH PRN (10:42)
--- NOTE | 2017-12-21 15:42 | PN ---
[facility] Progress Note Note: C/O FOOT/TOE NAL DISCOLORATION AND ITCH. Vital Signs - 24 hr 12/21/17 12/21/17 12/21/17 00:30 03:30 07:11 Temperature 97.7 F Pulse Rate 77 Respiratory 16 16 20 Rate Blood Pressure 132/90 FOOT EXAM: GREAT TOE NAILS DISCOLORATION. DRY SKIN. IMPRESSION:ONYCHOMYCOSIS TINEA PEDIS PLAN:TINACTIN CREAM APPLY DIRECTED. FOLLOW UP WITH PROFESSOR OF FORESTRY AFTER REHAB
[2017-12-21] MEDS: QUEtiapine FUMARATE 100 MG TABLET (FP) PO SCH (21:50)
[2017-12-21] MEDS: diphenhydrAMINE HCL 50 MG CAPSULE PO PRN (21:50)
[2017-12-21] MEDS: MELATONIN 5 MG TABLETS PO PRN (21:50)
[2017-12-21] MEDS: THIAMINE HCL 100 MG TABLET (FP) PO SCH (21:50)
[2017-12-21] MEDS: LIDOCAINE PATCH REMOVAL MC SCH (21:51)
[2017-12-21] MEDS: P-EPHED 60MG/TRIPROLIDI 2.5MG TABLET PO PRN (23:18)
[2017-12-22] MEDS ORDERED: METHADONE HCL 10 MG TABLET ONE (05:41)
[2017-12-22] MEDS ORDERED: METHADONE HCL 40 MG DISPERSABLE TABLET ONE (05:41)
[2017-12-22] MEDS: NYSTATIN 500,000 UNITS/5 ML SUSPENSION PO SCH ×3 (06:29→17:56)
[2017-12-22] MEDS: METHADONE 80 MG, METHADONE 10 MG PO SCH (06:29)
[2017-12-22] MEDS: LIDOCAINE 5% TOPICAL PATCH TP SCH (10:26)
[2017-12-22] MEDS: PRENATAL VITAMINS W/ FOLIC ACID TABLET (FP) PO SCH (10:26)
[2017-12-22] MEDS: NICOTINE 14 MG/24 HOURS TOPICAL PATCH TD SCH (10:26)
[2017-12-22] MEDS: TOLNAFTATE 1% CREAM 15 GM TUBE TP SCH ×2 (10:27→22:39)
[2017-12-22] MEDS: BUDESONIDE/FORMETEROL FUMARATE 80/4.5 mcg INHALER IH SCH ×2 (10:27→22:30)
[2017-12-22] MEDS ORDERED: PT OWN MED DRAWER 7, Y5N ONE (17:49)
[2017-12-22] MEDS: THIAMINE HCL 100 MG TABLET (FP) PO SCH (22:29)
[2017-12-22] MEDS: QUEtiapine FUMARATE 100 MG TABLET (FP) PO SCH (22:29)
[2017-12-22] MEDS: LIDOCAINE PATCH REMOVAL MC SCH (22:30)
[2017-12-22] MEDS: diphenhydrAMINE HCL 50 MG CAPSULE PO PRN (22:31)
[2017-12-23] MEDS: NYSTATIN 500,000 UNITS/5 ML SUSPENSION PO SCH ×4 (01:01→20:35)
[2017-12-23] MEDS ORDERED: METHADONE HCL 10 MG TABLET ONE (02:50)
[2017-12-23] MEDS ORDERED: METHADONE HCL 40 MG DISPERSABLE TABLET ONE (02:50)
[2017-12-23] MEDS: METHADONE 80 MG, METHADONE 10 MG PO SCH (06:35)
[2017-12-23] MEDS: BUDESONIDE/FORMETEROL FUMARATE 80/4.5 mcg INHALER IH SCH ×2 (10:43→22:07)
[2017-12-23] MEDS: NICOTINE 14 MG/24 HOURS TOPICAL PATCH TD SCH (10:43)
[2017-12-23] MEDS: LIDOCAINE 5% TOPICAL PATCH TP SCH (10:43)
[2017-12-23] MEDS: PRENATAL VITAMINS W/ FOLIC ACID TABLET (FP) PO SCH (10:43)
[2017-12-23] MEDS: TOLNAFTATE 1% CREAM 15 GM TUBE TP SCH ×2 (10:46→22:08)
--- NOTE | 2017-12-23 11:22 | PN ---
Psychiatric Progress Note Vital Signs: Vital Signs Period Temp Pulse Resp BP Sys/Hernandez Pulse Ox Last 24 Hr 97.9 F 80 16-18 107/63 Date of Session: 12/23/17 Chief Complaint:: Discharge Note HPI: Patient addressing Alcohol Dependence comorbid with Opioid Dependence on Agonist Therapy, Nicotine Dependence, Bipolar II Disorder, Substance-Induced Mood Disorder and Substance-Induced Sleep Disorder ROS: Back pain, Asthma, Gerd, Glaucoma, Hep C were medically managed Current Medications: Active Medications Generic Name Dose Route Start Last Admin Trade Name Freq PRN Reason Stop Dose Admin Acetaminophen 650 mg 12/09/17 13:27 12/11/17 17:38 Tylenol - PO 650 mg Q4H PRN Administration FEVER Al Hydroxide/Mg Hydroxide 30 ml 12/09/17 13:27 Mylanta Oral Suspension - PO Q6H PRN DYSPEPSIA Albuterol Sulfate 2 puff 12/09/17 13:29 12/21/17 10:42 Ventolin Hfa Inhaler - IH 2 puff Q4H PRN Administration ASTHMA Baclofen 10 mg 12/10/17 15:24 12/19/17 21:46 Lioresal - PO 10 mg TID PRN Administration PAIN Budesonide/Formoterol Fumarate 2 puff 12/09/17 22:00 12/23/17 10:43 Symbicort 80/4.5mcg - IH 2 puff BID APOLINAR Administration Diphenhydramine HCl 50 mg 12/10/17 22:00 12/22/17 22:31 Benadryl - PO 50 mg HS PRN Administration INSOMNIA Eucalyptus/Menthol/Phenol/Sorbitol 1 each 12/09/17 13:27 12/13/17 17:42 Cepastat Lozenge - MM 1 each Q4H PRN Administration SORE THROAT Guaifenesin 10 ml 12/09/17 13:27 Robitussin Dm - PO Q6H PRN COUGH Ibuprofen 400 mg 12/09/17 13:27 Motrin - PO Q6H PRN Pain Level 4-6 Lidocaine 1 patch 12/10/17 15:30 12/23/17 10:43 Lidoderm Patch - TP 1 patch DAILY APOLINAR Administration Lidocaine HCl 5 ml 12/10/17 15:25 Xylocaine 2% Viscous Oral - MM Q6HPO PRN ORAL PAIN/MOUTH SORES Loperamide HCl 4 mg 12/09/17 13:27 Imodium - PO Q6H PRN DIARRHEA Magnesium Citrate 300 ml 12/09/17 13:27 Citroma - PO Q48H PRN CONSTIPATION Magnesium Hydroxide 30 ml 12/09/17 13:27 12/21/17 11:40 Milk Of Magnesia - PO 30 ml DAILY PRN Administration CONSTIPATION Melatonin 5 mg 12/09/17 22:00 12/21/17 21:50 Melatonin PO 5 mg HS PRN Administration INSOMNIA Methadone HCl 80 mg/ Methadone 90 mg 12/21/17 06:00 12/23/17 06:35 HCl 10 mg PO 90 mg DAILY@0600 APOLINAR Administration Miscellaneous 1 each 12/10/17 22:00 12/22/17 22:30 Lidoderm Patch Removal MC 1 each DAILY@2200 PAOLINAR Administration Nicotine 14 mg 12/10/17 10:00 12/23/17 10:43 Nicoderm Patch - TD Not Given DAILY APOLINAR Nicotine Polacrilex 2 mg 12/09/17 13:27 Nicorette Gum - BUC Q2H PRN NICOTINE REPLACEMENT RX Nystatin 500,000 units 12/11/17 12:00 12/23/17 06:35 Nystatin Oral Suspension - PO Not Given Q6HPO APOLINAR Multivit/Folic Acid/Iron 1 tab 12/10/17 10:00 12/23/17 10:43 Vitamins (Sjr) - PO 1 tab DAILY APOLINAR Administration Pseudoephedrine/Triprolidine 1 combo 12/09/17 13:27 12/21/17 23:18 Actifed - PO 1 combo TID PRN Administration NASAL CONGESTION Quetiapine Fumarate 100 mg 12/10/17 22:00 12/22/17 22:29 Seroquel - PO 100 mg HS APOLINAR Administration Thiamine HCl 100 mg 12/09/17 22:00 12/22/17 22:29 Vitamin B1 - PO 100 mg HS APOLINAR Administration Tolnaftate 1 applic 12/21/17 10:15 12/23/17 10:46 Tinactin 1% Cream - TP Not Given BID APOLINAR Current Side Effect: No Lab tests ordered: Yes Lab tests reviewed: Yes Provider note:: Patient will complete this program on 12/24/17. He has met his treatment goals and will continue to address his issues in outpatient treatment at [facility]. Told comic writer that from his participation in this program, he has learned to keep the focus on himself. He responded well to Seroquel 100mg po HS. Script for 30 days supply of medication will be electronically transmitted to [facility] at [id number] [place] [id number]. He is stable for discharge on 12/24/17 Total face to face time:: 35 Mental Status Exam - Mental Status Exam Alert and Oriented to: Time, Place, Person Cognitive Function: Fair Patient Appearance: Well Groomed Mood: Hopeful, Euthymic Affect: Appropriate Patient Behavior: Cooperative Speech Pattern: Clear Voice Loudness: Normal, Limited Variation Thought Process: Goal Oriented Thought Disorder: Not Present Hallucinations: Denies Suicidal Ideation: Denies Homicidal Ideation: Denies Insight/Judgement: Fair Sleep: Fair Appetite: Good Muscle strength/Tone: Normal Gait/Station: Normal Psychiatric Treatment Plan - Problem List (1) Alcohol dependence Current Visit: No (2) Opioid dependence on agonist therapy Current Visit: Yes (3) Nicotine dependence Current Visit: No Qualifiers: Nicotine product type: cigarettes Substance use status: in withdrawal Qualified Code(s): F17.213 - Nicotine dependence, cigarettes, with withdrawal (4) Bipolar II disorder Current Visit: No Comment: SEROQUEL (5) MDD (major depressive disorder) Current Visit: No (6) Substance induced mood disorder Current Visit: Yes (7) Substance-induced sleep disorder Current Visit: Yes (8) Back pain Current Visit: No (9) Head injury Current Visit: No (10) Right knee injury Current Visit: No (11) Asthma Current Visit: No Qualifiers: Asthma severity: mild Asthma persistence: intermittent Asthma complication type: with status asthmaticus Qualified Code(s): J45.22 - Mild intermittent asthma with status asthmaticus (12) GERD (gastroesophageal reflux disease) Current Visit: No Qualifiers: Esophagitis presence: without esophagitis Qualified Code(s): K21.9 - Gastro -esophageal reflux disease without esophagitis (13) Glaucoma Current Visit: No Qualifiers: Glaucoma type: unspecified Laterality: bilateral Qualified Code(s): H40.9 - Unspecified glaucoma (14) Hep C w/o coma, chronic Current Visit: No (15) Use of cane as ambulatory aid Current Visit: No Initial treatment plan: Patient will be discharged tomorrow and referred to [facility] for outpatient treatment
[2017-12-23] MEDS: QUEtiapine FUMARATE 100 MG TABLET (FP) PO SCH (22:06)
[2017-12-23] MEDS: THIAMINE HCL 100 MG TABLET (FP) PO SCH (22:06)
[2017-12-23] MEDS: LIDOCAINE PATCH REMOVAL MC SCH (22:07)
[2017-12-23] MEDS: diphenhydrAMINE HCL 50 MG CAPSULE PO PRN (22:07)
[2017-12-24] MEDS: NYSTATIN 500,000 UNITS/5 ML SUSPENSION PO SCH ×4 (00:20→22:49)
[2017-12-24] MEDS ORDERED: METHADONE HCL 10 MG TABLET ONE (04:17)
[2017-12-24] MEDS ORDERED: METHADONE HCL 40 MG DISPERSABLE TABLET ONE (04:17)
[2017-12-24] MEDS: METHADONE 80 MG, METHADONE 10 MG PO SCH (06:47)
[2017-12-24] MEDS: LIDOCAINE 5% TOPICAL PATCH TP SCH (10:32)
[2017-12-24] MEDS: BUDESONIDE/FORMETEROL FUMARATE 80/4.5 mcg INHALER IH SCH ×2 (10:32→21:52)
[2017-12-24] MEDS: PRENATAL VITAMINS W/ FOLIC ACID TABLET (FP) PO SCH (10:32)
[2017-12-24] MEDS: NICOTINE 14 MG/24 HOURS TOPICAL PATCH TD SCH (10:34)
[2017-12-24] MEDS: TOLNAFTATE 1% CREAM 15 GM TUBE TP SCH ×2 (10:34→21:52)
[2017-12-24] MEDS: QUEtiapine FUMARATE 100 MG TABLET (FP) PO SCH (21:50)
[2017-12-24] MEDS: THIAMINE HCL 100 MG TABLET (FP) PO SCH (21:50)
[2017-12-24] MEDS: LIDOCAINE PATCH REMOVAL MC SCH (21:51)
[2017-12-24] MEDS: diphenhydrAMINE HCL 50 MG CAPSULE PO PRN (21:51)
[2017-12-24] MEDS: MAG HYDROX/AL HYDROX/SIMETH 30 ML UNIT-DOSE CUP PO PRN (22:11)
[2017-12-25] MEDS: NYSTATIN 500,000 UNITS/5 ML SUSPENSION PO SCH ×4 (00:10→18:23)
[2017-12-25] MEDS ORDERED: METHADONE HCL 10 MG TABLET ONE (04:19)
[2017-12-25] MEDS ORDERED: METHADONE HCL 40 MG DISPERSABLE TABLET ONE (04:19)
[2017-12-25] MEDS: METHADONE 80 MG, METHADONE 10 MG PO SCH (06:32)
[2017-12-25] MEDS: PRENATAL VITAMINS W/ FOLIC ACID TABLET (FP) PO SCH (10:46)
[2017-12-25] MEDS: TOLNAFTATE 1% CREAM 15 GM TUBE TP SCH ×2 (10:46→22:02)
[2017-12-25] MEDS: BUDESONIDE/FORMETEROL FUMARATE 80/4.5 mcg INHALER IH SCH ×2 (10:46→22:02)
[2017-12-25] MEDS: NICOTINE 14 MG/24 HOURS TOPICAL PATCH TD SCH (10:49)
[2017-12-25] MEDS: LIDOCAINE 5% TOPICAL PATCH TP SCH (10:49)
[2017-12-25] MEDS: THIAMINE HCL 100 MG TABLET (FP) PO SCH (22:01)
[2017-12-25] MEDS: diphenhydrAMINE HCL 50 MG CAPSULE PO PRN (22:01)
[2017-12-25] MEDS: QUEtiapine FUMARATE 100 MG TABLET (FP) PO SCH (22:01)
[2017-12-25] MEDS: LIDOCAINE PATCH REMOVAL MC SCH (22:05)
[2017-12-26] MEDS: NYSTATIN 500,000 UNITS/5 ML SUSPENSION PO SCH ×5 (00:23→23:13)
[2017-12-26] MEDS ORDERED: METHADONE HCL 10 MG TABLET ONE (04:11)
[2017-12-26] MEDS ORDERED: METHADONE HCL 40 MG DISPERSABLE TABLET ONE (04:11)
[2017-12-26] MEDS: METHADONE 80 MG, METHADONE 10 MG PO SCH (06:31)
[2017-12-26] MEDS: PRENATAL VITAMINS W/ FOLIC ACID TABLET (FP) PO SCH (10:28)
[2017-12-26] MEDS: LIDOCAINE 5% TOPICAL PATCH TP SCH (10:29)
[2017-12-26] MEDS: TOLNAFTATE 1% CREAM 15 GM TUBE TP SCH ×2 (10:30→21:54)
[2017-12-26] MEDS: BUDESONIDE/FORMETEROL FUMARATE 80/4.5 mcg INHALER IH SCH ×2 (10:30→21:54)
[2017-12-26] MEDS: NICOTINE 14 MG/24 HOURS TOPICAL PATCH TD SCH (10:30)
[2017-12-26] MEDS: THIAMINE HCL 100 MG TABLET (FP) PO SCH (21:53)
[2017-12-26] MEDS: diphenhydrAMINE HCL 50 MG CAPSULE PO PRN (21:53)
[2017-12-26] MEDS: QUEtiapine FUMARATE 100 MG TABLET (FP) PO SCH (21:53)
[2017-12-26] MEDS: LIDOCAINE PATCH REMOVAL MC SCH (21:53)
[2017-12-26] MEDS: P-EPHED 60MG/TRIPROLIDI 2.5MG TABLET PO PRN (21:55)
[2017-12-27] MEDS ORDERED: METHADONE HCL 10 MG TABLET ONE (03:09)
[2017-12-27] MEDS ORDERED: METHADONE HCL 40 MG DISPERSABLE TABLET ONE (03:09)
[2017-12-27] MEDS ORDERED: METHADONE HCL 10 MG TABLET PO SCH (06:00)
[2017-12-27] MEDS: NYSTATIN 500,000 UNITS/5 ML SUSPENSION PO SCH ×4 (06:45→23:39)
[2017-12-27] MEDS: METHADONE 80 MG, METHADONE 10 MG PO SCH ×2 (06:46)
[2017-12-27] MEDS: PRENATAL VITAMINS W/ FOLIC ACID TABLET (FP) PO SCH (10:29)
[2017-12-27] MEDS: LIDOCAINE 5% TOPICAL PATCH TP SCH (10:29)
[2017-12-27] MEDS: BUDESONIDE/FORMETEROL FUMARATE 80/4.5 mcg INHALER IH SCH ×2 (10:30→22:07)
[2017-12-27] MEDS: NICOTINE 14 MG/24 HOURS TOPICAL PATCH TD SCH (10:30)
[2017-12-27] MEDS: TOLNAFTATE 1% CREAM 15 GM TUBE TP SCH ×2 (10:30→22:07)
[2017-12-27] MEDS: DOCUSATE SODIUM 100 MG CAPSULE (FP) PO SCH ×2 (14:37→22:07)
[2017-12-27] MEDS ORDERED: PT OWN MED DRAWER 7, Y5N ONE (19:57)
[2017-12-27] MEDS: QUEtiapine FUMARATE 100 MG TABLET (FP) PO SCH (22:07)
[2017-12-27] MEDS: LIDOCAINE PATCH REMOVAL MC SCH (22:07)
[2017-12-27] MEDS: diphenhydrAMINE HCL 50 MG CAPSULE PO PRN (22:07)
[2017-12-27] MEDS: THIAMINE HCL 100 MG TABLET (FP) PO SCH (22:07)
[2017-12-28] MEDS ORDERED: METHADONE HCL 10 MG TABLET ONE (04:00)
[2017-12-28] MEDS ORDERED: METHADONE HCL 40 MG DISPERSABLE TABLET ONE (04:00)
[2017-12-28] MEDS: METHADONE 80 MG, METHADONE 10 MG PO SCH (06:36)
[2017-12-28] MEDS: DOCUSATE SODIUM 100 MG CAPSULE (FP) PO SCH ×3 (06:36→21:35)
[2017-12-28] MEDS: NYSTATIN 500,000 UNITS/5 ML SUSPENSION PO SCH ×3 (07:52→18:00)
[2017-12-28] MEDS: PRENATAL VITAMINS W/ FOLIC ACID TABLET (FP) PO SCH (10:17)
[2017-12-28] MEDS: NICOTINE 14 MG/24 HOURS TOPICAL PATCH TD SCH (10:18)
[2017-12-28] MEDS: LIDOCAINE 5% TOPICAL PATCH TP SCH (10:18)
[2017-12-28] MEDS: BUDESONIDE/FORMETEROL FUMARATE 80/4.5 mcg INHALER IH SCH ×2 (10:29→21:36)
[2017-12-28] MEDS: TOLNAFTATE 1% CREAM 15 GM TUBE TP SCH ×2 (10:30→21:36)
[2017-12-28] MEDS: QUEtiapine FUMARATE 100 MG TABLET (FP) PO SCH (21:35)
[2017-12-28] MEDS: THIAMINE HCL 100 MG TABLET (FP) PO SCH (21:35)
[2017-12-28] MEDS: diphenhydrAMINE HCL 50 MG CAPSULE PO PRN (21:35)
[2017-12-28] MEDS: LIDOCAINE PATCH REMOVAL MC SCH (22:29)
[2017-12-29] MEDS ORDERED: METHADONE HCL 10 MG TABLET ONE (04:14)
[2017-12-29] MEDS ORDERED: METHADONE HCL 40 MG DISPERSABLE TABLET ONE (04:15)
[2017-12-29] MEDS: METHADONE 80 MG, METHADONE 10 MG PO SCH (06:23)
[2017-12-29] MEDS: NYSTATIN 500,000 UNITS/5 ML SUSPENSION PO SCH ×5 (06:23→23:42)
[2017-12-29] MEDS: DOCUSATE SODIUM 100 MG CAPSULE (FP) PO SCH ×3 (06:23→22:13)
[2017-12-29] MEDS: PRENATAL VITAMINS W/ FOLIC ACID TABLET (FP) PO SCH (10:26)
[2017-12-29] MEDS: LIDOCAINE 5% TOPICAL PATCH TP SCH (10:27)
[2017-12-29] MEDS: NICOTINE 14 MG/24 HOURS TOPICAL PATCH TD SCH (10:27)
[2017-12-29] MEDS: TOLNAFTATE 1% CREAM 15 GM TUBE TP SCH ×2 (10:27→22:16)
[2017-12-29] MEDS: BUDESONIDE/FORMETEROL FUMARATE 80/4.5 mcg INHALER IH SCH ×2 (10:27→22:14)
[2017-12-29] MEDS: QUEtiapine FUMARATE 100 MG TABLET (FP) PO SCH (22:13)
[2017-12-29] MEDS: THIAMINE HCL 100 MG TABLET (FP) PO SCH (22:13)
[2017-12-29] MEDS: LIDOCAINE PATCH REMOVAL MC SCH (22:13)
[2017-12-29] MEDS ORDERED: PT OWN MED DRAWER 7, Y5N ONE (22:16)
[2017-12-30] MEDS ORDERED: METHADONE HCL 10 MG TABLET ONE (04:14)
[2017-12-30] MEDS ORDERED: METHADONE HCL 40 MG DISPERSABLE TABLET ONE (04:14)
[2017-12-30] MEDS: DOCUSATE SODIUM 100 MG CAPSULE (FP) PO SCH ×3 (06:35→22:34)
[2017-12-30] MEDS: METHADONE 80 MG, METHADONE 10 MG PO SCH (06:35)
[2017-12-30] MEDS: NYSTATIN 500,000 UNITS/5 ML SUSPENSION PO SCH ×4 (06:36→23:30)
[2017-12-30] MEDS ORDERED: PT OWN MED DRAWER 7, Y5N ONE (08:46)
[2017-12-30] MEDS: PRENATAL VITAMINS W/ FOLIC ACID TABLET (FP) PO SCH (10:18)
[2017-12-30] MEDS: LIDOCAINE 5% TOPICAL PATCH TP SCH (10:19)
[2017-12-30] MEDS: NICOTINE 14 MG/24 HOURS TOPICAL PATCH TD SCH (10:20)
[2017-12-30] MEDS: BUDESONIDE/FORMETEROL FUMARATE 80/4.5 mcg INHALER IH SCH ×2 (10:21→21:56)
[2017-12-30] MEDS: TOLNAFTATE 1% CREAM 15 GM TUBE TP SCH ×2 (10:22→21:56)
[2017-12-30] MEDS: THIAMINE HCL 100 MG TABLET (FP) PO SCH (21:55)
[2017-12-30] MEDS: QUEtiapine FUMARATE 100 MG TABLET (FP) PO SCH (21:55)
[2017-12-30] MEDS: BACLOFEN 10 MG TABLET (FP) PO PRN (21:55)
[2017-12-30] MEDS: diphenhydrAMINE HCL 50 MG CAPSULE PO PRN (21:55)
[2017-12-30] MEDS: LIDOCAINE PATCH REMOVAL MC SCH (21:56)
[2017-12-31] MEDS ORDERED: METHADONE HCL 10 MG TABLET ONE (04:15)
[2017-12-31] MEDS ORDERED: METHADONE HCL 40 MG DISPERSABLE TABLET ONE (04:15)
[2017-12-31] MEDS: NYSTATIN 500,000 UNITS/5 ML SUSPENSION PO SCH ×3 (06:00→20:52)
[2017-12-31] MEDS: DOCUSATE SODIUM 100 MG CAPSULE (FP) PO SCH ×3 (06:37→21:29)
[2017-12-31] MEDS: METHADONE 80 MG, METHADONE 10 MG PO SCH (06:37)
[2017-12-31] MEDS: NICOTINE 14 MG/24 HOURS TOPICAL PATCH TD SCH (10:38)
[2017-12-31] MEDS: PRENATAL VITAMINS W/ FOLIC ACID TABLET (FP) PO SCH (10:38)
[2017-12-31] MEDS: LIDOCAINE 5% TOPICAL PATCH TP SCH (10:40)
[2017-12-31] MEDS: TOLNAFTATE 1% CREAM 15 GM TUBE TP SCH ×2 (10:40→21:32)
[2017-12-31] MEDS: BUDESONIDE/FORMETEROL FUMARATE 80/4.5 mcg INHALER IH SCH ×2 (10:40→21:32)
[2017-12-31] MEDS: QUEtiapine FUMARATE 100 MG TABLET (FP) PO SCH (21:29)
[2017-12-31] MEDS: diphenhydrAMINE HCL 50 MG CAPSULE PO PRN (21:29)
[2017-12-31] MEDS: THIAMINE HCL 100 MG TABLET (FP) PO SCH (21:29)
[2017-12-31] MEDS: BACLOFEN 10 MG TABLET (FP) PO PRN (21:31)
[2017-12-31] MEDS: LIDOCAINE PATCH REMOVAL MC SCH (21:32)
[2018-01-01] MEDS: MAG HYDROX/AL HYDROX/SIMETH 30 ML UNIT-DOSE CUP PO PRN ×4 (00:16→22:46)
[2018-01-01] MEDS: NYSTATIN 500,000 UNITS/5 ML SUSPENSION PO SCH ×4 (00:18→17:47)
[2018-01-01] MEDS ORDERED: METHADONE HCL 40 MG DISPERSABLE TABLET ONE (03:01)
[2018-01-01] MEDS ORDERED: METHADONE HCL 10 MG TABLET ONE (03:01)
[2018-01-01] MEDS: DOCUSATE SODIUM 100 MG CAPSULE (FP) PO SCH ×3 (06:02→21:44)
[2018-01-01] MEDS: METHADONE 80 MG, METHADONE 10 MG PO SCH (06:03)
[2018-01-01] MEDS: NICOTINE 14 MG/24 HOURS TOPICAL PATCH TD SCH (10:28)
[2018-01-01] MEDS: LIDOCAINE 5% TOPICAL PATCH TP SCH (10:28)
[2018-01-01] MEDS: TOLNAFTATE 1% CREAM 15 GM TUBE TP SCH ×2 (10:28→21:45)
[2018-01-01] MEDS: BUDESONIDE/FORMETEROL FUMARATE 80/4.5 mcg INHALER IH SCH ×2 (10:28→21:44)
[2018-01-01] MEDS: PRENATAL VITAMINS W/ FOLIC ACID TABLET (FP) PO SCH (10:28)
[2018-01-01] MEDS: LIDOCAINE PATCH REMOVAL MC SCH (21:44)
[2018-01-01] MEDS: THIAMINE HCL 100 MG TABLET (FP) PO SCH (21:44)
[2018-01-01] MEDS: QUEtiapine FUMARATE 100 MG TABLET (FP) PO SCH (21:44)
[2018-01-01] MEDS: BACLOFEN 10 MG TABLET (FP) PO PRN (21:46)
[2018-01-02] MEDS: NYSTATIN 500,000 UNITS/5 ML SUSPENSION PO SCH ×4 (00:48→18:07)
[2018-01-02] MEDS ORDERED: METHADONE HCL 10 MG TABLET ONE (04:28)
[2018-01-02] MEDS ORDERED: METHADONE HCL 40 MG DISPERSABLE TABLET ONE (04:29)
[2018-01-02] MEDS: DOCUSATE SODIUM 100 MG CAPSULE (FP) PO SCH ×3 (06:44→21:33)
[2018-01-02] MEDS: METHADONE 80 MG, METHADONE 10 MG PO SCH (06:44)
[2018-01-02] MEDS ORDERED: PT OWN MED DRAWER 7, Y5N ONE ×3 (09:02→20:01)
[2018-01-02] MEDS: PRENATAL VITAMINS W/ FOLIC ACID TABLET (FP) PO SCH (10:33)
[2018-01-02] MEDS: MAG HYDROX/AL HYDROX/SIMETH 30 ML UNIT-DOSE CUP PO PRN ×2 (10:33→21:35)
[2018-01-02] MEDS: BUDESONIDE/FORMETEROL FUMARATE 80/4.5 mcg INHALER IH SCH ×2 (10:33→22:25)
[2018-01-02] MEDS: NICOTINE 14 MG/24 HOURS TOPICAL PATCH TD SCH (10:34)
[2018-01-02] MEDS: LIDOCAINE 5% TOPICAL PATCH TP SCH (10:34)
[2018-01-02] MEDS: TOLNAFTATE 1% CREAM 15 GM TUBE TP SCH ×2 (10:36→22:26)
[2018-01-02] MEDS: THIAMINE HCL 100 MG TABLET (FP) PO SCH (21:33)
[2018-01-02] MEDS: QUEtiapine FUMARATE 100 MG TABLET (FP) PO SCH (21:33)
[2018-01-02] MEDS: BACLOFEN 10 MG TABLET (FP) PO PRN (21:34)
[2018-01-02] MEDS: LIDOCAINE PATCH REMOVAL MC SCH (21:35)
[2018-01-03] MEDS: NYSTATIN 500,000 UNITS/5 ML SUSPENSION PO SCH ×4 (00:17→17:00)
[2018-01-03] MEDS ORDERED: METHADONE HCL 40 MG DISPERSABLE TABLET ONE (04:03)
[2018-01-03] MEDS ORDERED: METHADONE HCL 10 MG TABLET ONE (04:03)
[2018-01-03] MEDS: DOCUSATE SODIUM 100 MG CAPSULE (FP) PO SCH ×3 (06:46→22:04)
[2018-01-03] MEDS: METHADONE 80 MG, METHADONE 10 MG PO SCH (06:46)
[2018-01-03] MEDS: LIDOCAINE 5% TOPICAL PATCH TP SCH (10:38)
[2018-01-03] MEDS: NICOTINE 14 MG/24 HOURS TOPICAL PATCH TD SCH (10:38)
[2018-01-03] MEDS: PRENATAL VITAMINS W/ FOLIC ACID TABLET (FP) PO SCH (10:38)
[2018-01-03] MEDS: TOLNAFTATE 1% CREAM 15 GM TUBE TP SCH ×2 (10:39→22:36)
[2018-01-03] MEDS: BUDESONIDE/FORMETEROL FUMARATE 80/4.5 mcg INHALER IH SCH ×2 (10:39→22:36)
[2018-01-03] MEDS: QUEtiapine FUMARATE 100 MG TABLET (FP) PO SCH (22:04)
[2018-01-03] MEDS: THIAMINE HCL 100 MG TABLET (FP) PO SCH (22:04)
[2018-01-03] MEDS: MELATONIN 5 MG TABLETS PO PRN (22:04)
[2018-01-03] MEDS: LIDOCAINE PATCH REMOVAL MC SCH (22:36)
[2018-01-04] MEDS: NYSTATIN 500,000 UNITS/5 ML SUSPENSION PO SCH ×4 (00:10→20:30)
[2018-01-04] MEDS ORDERED: METHADONE HCL 40 MG DISPERSABLE TABLET ONE (04:45)
[2018-01-04] MEDS ORDERED: METHADONE HCL 10 MG TABLET ONE (04:45)
[2018-01-04] MEDS: METHADONE 80 MG, METHADONE 10 MG PO SCH (06:18)
[2018-01-04] MEDS: DOCUSATE SODIUM 100 MG CAPSULE (FP) PO SCH ×3 (06:19→22:16)
[2018-01-04] MEDS: BUDESONIDE/FORMETEROL FUMARATE 80/4.5 mcg INHALER IH SCH ×2 (10:34→22:20)
[2018-01-04] MEDS: TOLNAFTATE 1% CREAM 15 GM TUBE TP SCH ×2 (10:34→22:20)
[2018-01-04] MEDS: LIDOCAINE 5% TOPICAL PATCH TP SCH (10:34)
[2018-01-04] MEDS: NICOTINE 14 MG/24 HOURS TOPICAL PATCH TD SCH (10:34)
[2018-01-04] MEDS: PRENATAL VITAMINS W/ FOLIC ACID TABLET (FP) PO SCH (10:34)
[2018-01-04] MEDS: MAG HYDROX/AL HYDROX/SIMETH 30 ML UNIT-DOSE CUP PO PRN (13:31)
--- NOTE | 2018-01-04 14:05 | PN ---
Psychiatric Progress Note Vital Signs: Vital Signs Period Temp Pulse Resp BP Sys/Hernandez Pulse Ox Last 24 Hr 97.8 F 83 18-18 110/66 Date of Session: 01/04/18 Chief Complaint:: Discharge Note HPI: Patient addressing Alcohol Dependence comorbid with Opioid Dependence on Agonist Therapy, Nicotine Dependence, Bipolar II Disorder, Substance-Induced Mood Disorder and Substance-Induced Sleep Disorder ROS: Back pain, Asthma, Gerd, Glaucoma, Hep C were medically managed Current Medications: Active Medications Generic Name Dose Route Start Last Admin Trade Name Freq PRN Reason Stop Dose Admin Acetaminophen 650 mg 12/09/17 13:27 12/11/17 17:38 Tylenol - PO 650 mg Q4H PRN Administration FEVER Al Hydroxide/Mg Hydroxide 30 ml 12/09/17 13:27 01/04/18 13:31 Mylanta Oral Suspension - PO 30 ml Q6H PRN Administration DYSPEPSIA Albuterol Sulfate 2 puff 12/09/17 13:29 12/21/17 10:42 Ventolin Hfa Inhaler - IH 2 puff Q4H PRN Administration ASTHMA Baclofen 10 mg 12/10/17 15:24 01/02/18 21:34 Lioresal - PO 10 mg TID PRN Administration PAIN Budesonide/Formoterol Fumarate 2 puff 12/09/17 22:00 01/04/18 10:34 Symbicort 80/4.5mcg - IH Not Given BID APOLINAR Diphenhydramine HCl 100 mg 12/23/17 22:00 12/31/17 21:29 Benadryl - PO 100 mg HS PRN Administration FOR ITCHING Docusate Sodium 100 mg 12/27/17 14:00 01/04/18 06:19 Colace - PO 100 mg TID APOLINAR Administration Eucalyptus/Menthol/Phenol/Sorbitol 1 each 12/09/17 13:27 12/13/17 17:42 Cepastat Lozenge - MM 1 each Q4H PRN Administration SORE THROAT Guaifenesin 10 ml 12/09/17 13:27 Robitussin Dm - PO Q6H PRN COUGH Ibuprofen 400 mg 12/09/17 13:27 Motrin - PO Q6H PRN Pain Level 4-6 Lidocaine 1 patch 12/10/17 15:30 01/04/18 10:34 Lidoderm Patch - TP 1 patch DAILY APOLINAR Administration Lidocaine HCl 5 ml 12/10/17 15:25 Xylocaine 2% Viscous Oral - MM Q6HPO PRN ORAL PAIN/MOUTH SORES Loperamide HCl 4 mg 12/09/17 13:27 Imodium - PO Q6H PRN DIARRHEA Magnesium Citrate 300 ml 12/09/17 13:27 Citroma - PO Q48H PRN CONSTIPATION Magnesium Hydroxide 30 ml 12/09/17 13:27 12/21/17 11:40 Milk Of Magnesia - PO 30 ml DAILY PRN Administration CONSTIPATION Melatonin 5 mg 12/09/17 22:00 01/03/18 22:04 Melatonin PO 5 mg HS PRN Administration INSOMNIA Methadone HCl 80 mg/ Methadone 90 mg 01/03/18 06:00 01/04/18 06:18 HCl 10 mg PO 90 mg DAILY@0600 APOLINAR Administration Miscellaneous 1 each 12/10/17 22:00 01/03/18 22:36 Lidoderm Patch Removal MC Not Given DAILY@2200 APOLINAR Nicotine 14 mg 12/10/17 10:00 01/04/18 10:34 Nicoderm Patch - TD Not Given DAILY APOLINAR Nicotine Polacrilex 2 mg 12/09/17 13:27 Nicorette Gum - BUC Q2H PRN NICOTINE REPLACEMENT RX Nystatin 500,000 units 12/11/17 12:00 01/04/18 12:27 Nystatin Oral Suspension - PO Not Given Q6HPO APOLINAR Multivit/Folic Acid/Iron 1 tab 12/10/17 10:00 01/04/18 10:34 Vitamins (Sjr) - PO 1 tab DAILY APOLINAR Administration Pseudoephedrine/Triprolidine 1 combo 12/09/17 13:27 12/26/17 21:55 Actifed - PO 1 combo TID PRN Administration NASAL CONGESTION Quetiapine Fumarate 100 mg 12/10/17 22:00 01/03/18 22:04 Seroquel - PO 100 mg HS APOLINAR Administration Thiamine HCl 100 mg 12/09/17 22:00 01/03/18 22:04 Vitamin B1 - PO 100 mg HS APOLINAR Administration Tolnaftate 1 applic 12/21/17 10:15 01/04/18 10:34 Tinactin 1% Cream - TP Not Given BID APOLINAR Current Side Effect: No Lab tests ordered: Yes Lab tests reviewed: Yes Provider note:: Patient will complete this program on 01/05/18. He has met his treatment goals and will continue to address his issues by going to [facility] from where he will be referred to an oupatient program. Told communications writer that from his participation in this program, he has learned to keep the focus on himself. He responded well to Seroquel 100mg po HS. Script for 30 days supply of medication will be electronically transmitted to [facility] at [id number] [place] [address]. He is stable for discharge on Total face to face time:: 35 Mental Status Exam - Mental Status Exam Alert and Oriented to: Time, Place, Person Cognitive Function: Fair Patient Appearance: Well Groomed Mood: Hopeful, Euthymic Affect: Appropriate Patient Behavior: Cooperative Speech Pattern: Clear Voice Loudness: Normal Thought Process: Intact, Goal Oriented Thought Disorder: Not Present Hallucinations: Denies Homicidal Ideation: Denies Insight/Judgement: Fair Sleep: Fair Appetite: Good Muscle strength/Tone: Normal Gait/Station: Normal Psychiatric Treatment Plan - Problem List (1) Alcohol dependence Current Visit: No (2) Opioid dependence on agonist therapy Current Visit: Yes (3) Nicotine dependence Current Visit: No Qualifiers: Nicotine product type: cigarettes Substance use status: in withdrawal Qualified Code(s): F17.213 - Nicotine dependence, cigarettes, with withdrawal (4) Bipolar II disorder Current Visit: No Comment: SEROQUEL (5) MDD (major depressive disorder) Current Visit: No (6) Substance induced mood disorder Current Visit: Yes (7) Substance-induced sleep disorder Current Visit: Yes (8) Back pain Current Visit: No (9) Head injury Current Visit: No (10) Right knee injury Current Visit: No (11) Asthma Current Visit: No Qualifiers: Asthma severity: mild Asthma persistence: intermittent Asthma complication type: with status asthmaticus Qualified Code(s): J45.22 - Mild intermittent asthma with status asthmaticus (12) GERD (gastroesophageal reflux disease) Current Visit: No Qualifiers: Esophagitis presence: without esophagitis Qualified Code(s): K21.9 - Gastro -esophageal reflux disease without esophagitis (13) Glaucoma Current Visit: No Qualifiers: Glaucoma type: unspecified Laterality: bilateral Qualified Code(s): H40.9 - Unspecified glaucoma (14) Hep C w/o coma, chronic Current Visit: No (15) Use of cane as ambulatory aid Current Visit: No Initial treatment plan: Patient will be discharged tomorrow and will go to 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
[2018-01-04] MEDS: QUEtiapine FUMARATE 100 MG TABLET (FP) PO SCH (22:16)
[2018-01-04] MEDS: THIAMINE HCL 100 MG TABLET (FP) PO SCH (22:16)
[2018-01-04] MEDS: diphenhydrAMINE HCL 50 MG CAPSULE PO PRN (22:16)
[2018-01-04] MEDS: BACLOFEN 10 MG TABLET (FP) PO PRN (22:18)
[2018-01-04] MEDS: LIDOCAINE PATCH REMOVAL MC SCH (22:19)
[2018-01-05] MEDS: NYSTATIN 500,000 UNITS/5 ML SUSPENSION PO SCH ×2 (00:24→06:41)
[2018-01-05] MEDS ORDERED: METHADONE HCL 10 MG TABLET ONE (03:27)
[2018-01-05] MEDS ORDERED: METHADONE HCL 40 MG DISPERSABLE TABLET ONE (03:27)
[2018-01-05] MEDS: METHADONE 80 MG, METHADONE 10 MG PO SCH (06:39)
[2018-01-05] MEDS: DOCUSATE SODIUM 100 MG CAPSULE (FP) PO SCH (06:39)
[2018-01-05] MEDS: MAG HYDROX/AL HYDROX/SIMETH 30 ML UNIT-DOSE CUP PO PRN (06:45)
[2018-01-05 07:15] VITALS: BP 113/75; PULSE 79; TEMP 97.9
[2018-01-05] MEDS ORDERED: PT OWN MED DRAWER 7, Y5N ONE (08:40)
== END 2018-01-05 08:42 | disposition home or self-care (01) | DRG 895 ==
LOC: YASAS 11:06 → Y3W 11:12
PROVIDERS: ADMIT Psychiatry & Neurology Psychiatry; ATTEND Psychiatry & Neurology Psychiatry
PROC: HZ42ZZZ Group Counseling for Substance Abuse Treatment, Cognitive-Behavioral (ICD-10-PCS; principal; 2017-12-09)
DX: F10.20 Alcohol dependence, uncomplicated (principal); F11.20 Opioid dependence, uncomplicated; F31.81 Bipolar II disorder; F33.9 Major depressive disorder, recurrent, unspecified; F19.282 Other psychoactive substance dependence with psychoactive substance-induced sleep disorder; J45.22 Mild intermittent asthma with status asthmaticus; F17.213 Nicotine dependence, cigarettes, with withdrawal; F19.24 Other psychoactive substance dependence with psychoactive substance-induced mood disorder; K05.00 Acute gingivitis, plaque induced; B35.1 Tinea unguium; B35.3 Tinea pedis; B18.2 Chronic viral hepatitis C; M54.5 Low back pain; G89.29 Other chronic pain; M25.561 Pain in right knee; K13.29 Other disturbances of oral epithelium, including tongue; H40.9 Unspecified glaucoma; R26.2 Difficulty in walking, not elsewhere classified; Z99.89 Dependence on other enabling machines and devices
CPT/HCPCS: 90688; G0008; J0475